=== PATIENT | female | born 1930 | race Caucasian/White ===

== ENCOUNTER 2016-06-30 08:01 | Inpatient (IN) | payer MEDICARE ==
[~2016-06-30] VITALS: Ht 147.3 cm; Wt 75.4 kg
[2016-06-30] VITALS (11 sets, daily range): BP systolic 124–169; BP diastolic 47–82; PULSE 50–60; RESP 12–23; O2SAT 93–99
--- NOTE | 2016-06-30 08:47 | DRSVH ---
PROCEDURE: X-RAY CHEST, TWO VIEWS ([id number]) INDICATIONS: SHORTNESS OF BREATH TECHNIQUE: 2 views of the chest were acquired. COMPARISON: None. FINDINGS: Surgical changes and devices: None. Lungs and pleura: No pleural effusions or pneumothorax. Lungs are clear. Mediastinum: Mediastinal contours are normal. Heart size is normal. Bones and chest wall: No suspicious bony abnormalities. Soft tissues appear unremarkable. IMPRESSION: No acute process. Dictated by: Afshin Trammell M.D. on 06/30/2016 at 8:45 Approved by: Afshin Trammell M.D. on 06/30/2016 at 8:45
--- NOTE | 2016-06-30 09:05 | ED.REPORT ---
HPI-General Illness Date of Service Jun 30, 2016 ED Provider: Celestino Collier DO The patient is an 86 year old female who presents to the emergency department complaining of flu-like symptoms that began 1 week ago. She has experienced a headache, weakness, malaise, nausea, decreased appetite, and productive cough. Her grandson states she had a few falls yesterday due to weakness. She denies fever, vomiting, diarrhea, abdominal pain, chest pain, dysuria, urinary urgency or hematuria. She denies history of coronary artery disease or congestive heart failure. Nursing Notes Stated Complaint: FLU Chief Complaint: FLU/Cold Symptoms Nursing Notes Reviewed: Yes Allergies: Coded Allergies: No Known Allergies (Unverified , 06/30/16) General Time Seen by MD: 09:03 Chief Complaint Flu-like illness Hx Obtained From: Patient Arrived By: Walk-in Sudden in Onset?: Yes Onset Occurred: More than a week ago... Symptom Duration: Since onset Quality: Painful Severity: Current: Mild Severity: Maximum: Moderate Recent Healthcare: No recent hospitalization Similar Sx Previous: No Past Medical History Past Medical History Hypertension High cholesterol Past Surgical History Appendectomy Tonsillectomy Family History Noncontributory Smoking History Unknown if Ever Smoker Social History Alcohol Use: "Social" Drug Use: Denies drug use Other Social History: Good social support, Local resident Ambulatory Status Independent Review of Systems +decreased appetite Full Review of Systems Constitutional: Reports: Malaise, Weakness - generalized, Denies: Fever Respiratory: Reports: Prod cough, white GI: Reports: Nausea, Denies: Abdominal pain, Constipation, Diarrhea, Vomiting Female: Denies: Dysuria, Hematuria, Urinary frequency, Urinary urgency, Urination decreased, Urination increased Musculoskeletal: Reports: Myalgia Neurologic: Reports: Headache Complete sys rev & neg: except as marked. Physical Exam Vital Signs Vital Signs Date Time Temp Pulse Resp B/P Pulse Ox O2 Delivery O2 Flow Rate FiO2 06/30/16 11:38 56 20 169/50 96 Nasal Cannula 06/30/16 10:18 57 16 97 Room Air 06/30/16 08:03 36.3 50 18 159/74 97 Room Air Initial VS: Reviewed Head / Eyes: Atraumatic, Normocephalic, PERRL ENT: Mucous membranes moist, Conjunctiva normal, No scleral icterus Cardiovascular: Regular rate & rhythm, Heart sounds normal, Intact distal pulses Abdomen / GI: Soft, Non-tender, No guarding, No rebound, No distention Lymphatic: No lymphadenopathy Extremities: Vascular intact, Neuro intact, No swelling, No tenderness Skin: Warm, Dry, No cyanosis Neurologic: Alert, Oriented, Nonfocal Psychiatric: Mood/affect normal, Behavior normal, Normal thought content General/Constitutional: Awake, Alert, Cooperative Neck: Atraumatic, Supple, No meningismus, Full range of motion, No swelling, Non-tender, No midline vertebral tend, No JVD Respiratory / Chest: Breath sounds = bilat, No respiratory distress, No rales, No rhonchi Wheezing / Retractions: Positive: Wheezing expiratory Interpretation & Diagnostics Lab Results Interpretation Result Diagram: 06/30/16 0900 06/30/16 1020 Test 06/30/16 09:00 06/30/16 10:20 06/30/16 11:13 White Blood Count 14.0th/mm3 (3.8-10.1) Red Blood Count 4.79mil/mm3 (3.90-5.20) Hemoglobin 13.9g/dL (12.0-15.6) Hematocrit 36.8% (35.0-46.0) Mean Corpuscular Volume 76.8fL (81-100) Mean Corpuscular Hemoglobin 29.0pg (27.0-35.0) Mean Corpuscular Hemoglobin Concent 37.8% (32.0-37.0) Red Cell Distribution Width 11.8% (12.3-15.4) Platelet Count 310bil/L (150-400) Neutrophils (%) (Auto) 77.5% (40-74) Lymphocytes (%) (Auto) 6.9% (14-46) Monocytes (%) (Auto) 14.6% (4-12) Eosinophils (%) (Auto) 0.4% (0-5) Basophils (%) (Auto) 0.1% (0-3) Total Bilirubin 1.2mg/dL (0.0-1.2) Aspartate Amino Transf (AST/SGOT) 82U/L (0-50) Alanine Aminotransferase (ALT/SGPT) 34U/L (0-32) Alkaline Phosphatase 79U/L (25-165) Troponin T 0.057ug/L (0.0-0.011) Pro-B-Type Natriuretic Peptide 3815pg/mL (0-738) Total Protein 6.9g/dL (6.4-8.4) Albumin 3.8g/dL (3.4-5.0) Sodium Level 106mEq/L (134-144) Potassium Level 3.0mEq/L (3.5-5.2) Chloride Level 66mEq/L (97-108) Carbon Dioxide Level 27mmol/L (18-29) Blood Urea Nitrogen 13mg/dL (8-27) Creatinine 0.57mg/dL (0.57-1.00) Estimat Glomerular Filtration Rate 145mL/min (>59) Glucose Level 99mg/dL (60-99) Lactic Acid Level 0.9mmol/L (0.4-2.0) Calcium Level 8.1mg/dL (8.5-10.1) Total Creatine Kinase 1263U/L (21-215) Creatine Kinase MB 28.9ng/mL (0.0-5.3) Creatine Kinase MB % 2.3% (0.0-5.0) ECG Interpretation ECG Interpretation: Sinus bradycardia Nonspecific ST changes No acute ischemic changes QTc of 517 Time: 09:05 Interpreted by: ED physician X-Ray Chest Interpretation Chest Xray Interpretation: IMPRESSION: No acute process. Dictated by: Afshin Trammell M.D. on 06/30/2016 at 8:45 Interpretation / Wet Read by: Interpret - Radiologist CT Head Interpretation IMPRESSION: 1. No acute intracranial process. 2. Moderate atrophy and chronic microvascular ischemic changes. Dictated by: Kim Elizabeth M.D. on 06/30/2016 at 11:41 Study: Head CT no contrast Interpretation / Wet Read by: Interpret - Radiologist CT Chest Interpretation IMPRESSION: 1. Scattered nodular groundglass like opacities as above. Their overall nonspecific and no priors are available for comparison. Findings are suspicious for infection or inflammation. Recommend interval imaging followup to document resolution and exclude presence of underlying mass lesion. 2. Mild appearance of esophageal thickening as described above. While this could be related to incomplete distention peristalsis, interval followup is recommended if concern for inflammation or mass lesion. 3. Cholelithiasis. 4. No pulmonary embolism. Dictated by: Kim Elizabeth M.D. on 06/30/2016 at 11:50 Study type: CT pulm angiogram Interpretation / Wet Read by: Interpret - Radiologist Re-Eval/Medical Decision Med Decision/Clinical Course Critical electrolyte abnormalities including a sodium of 105 potassium 2.7, associated elevated CK and troponin concerning for non-STEMI. Patient will be heparinized. Patient is receiving IV potassium. As well as IV normal saline order to improve electrolytes. Patient will be admitted. Source of Hx: Old records, Family Time of Eval: 10:16 Re-Evaluation/Progress Note: Rechecked the patient. Discussed lab results, diagnosis, and plan for workup and admission. All questions were addressed. Consultation : Referral / Consult Name: Alan Pedro MD Consulted With: Hospitalist Call Returned at: 10:52 Speeder Tender: Will see patient, Agrees with eval, Agrees with plan, Accepts admit Counseled Regarding: Diagnosis, Lab results, Need for admission Discharge & Departure Primary Impression: Hyponatremia Additional Impressions: Hypokalemia Elevated troponin CHF (congestive heart failure) Congestive heart failure type: unspecified congestive heart failure type Congestive heart failure chronicity: unspecified congestive heart failure chronicity Qualified Code: I50.9 - Heart failure, unspecified Disposition: ADMITTED TO HOSPITAL Discharge Condition All VS Reviewed: Yes Condition: Stable Referrals: Indio Juarez (PCP) Crit Care Except Billable Proc Time Spent: 30-74 minutes Services Performed: Patient management by me, Time spent at bedside, Reviewing test results Critical Care Notes: See MDM Scribe Attestation Portions of this note were transcribed by Johanna Gaming. I, Dr. Collier personally performed the history, physical exam and medical decision-making; I reviewed and confirmed the accuracy of the information in the transcribed note. Signed by: Anand Sunshine, 06/30/2016 and 1200. copies to: Indio Juarez Timothy S DO Jun 30, 2016 09:05 Johanna Gaming Jun 30, 2016 09:26
[2016-06-30 09:18] LABS: BASOPHILS % (AUTO) 0.1 % (0-3); Mean Corpuscular Volume 76.8 fL (81-100); NEUTROPHILS % (AUTO) 77.5 % (40-74)
[2016-06-30 09:28] LABS: EOSINOPHILS % (AUTO) 0.4 % (0-5); MONOCYTES % (AUTO) 14.6 % (4-12); Platelet Count 310 bil/L (150-400)
[2016-06-30] MEDS ORDERED: 0.9% Sodium Chloride 1,000 ML IV ONE (09:30)
[2016-06-30] MEDS ORDERED: Albuterol-Ipratropium 3 mL Inhalation Solution NEB ONE (09:30)
[2016-06-30 10:00] LABS: TROPONIN T 0.057 ug/L (0.0-0.011)
[2016-06-30] MEDS ORDERED: 0.9% Sodium Chloride 1,000 ML IV SCH ×2 (10:05→11:41)
[2016-06-30] MEDS ORDERED: Potassium Chloride 20 mEq SR Tablet PO ONE (10:10)
[2016-06-30] MEDS ORDERED: KCl 40 mEq/D5W 500 mL 40 MEQ in IV Premix 1 EACH IV ONE (10:10)
--- NOTE | 2016-06-30 11:43 | DRSVH ---
PROCEDURE: CT BRAIN WITHOUT CONTRAST ([id number]) INDICATIONS: recent falls TECHNIQUE: Noncontrast 4.5 mm thick angled axial sections acquired from the foramen magnum to the vertex, with c oronal reformats. COMPARISON: None. FINDINGS: Image quality: Excellent. CSF spaces: Basal cisterns are patent. No extra-axial fluid collections. The ventricles are symmet nelson in size and shape. Brain: No intracranial bleeds or masses. There is cerebral volume loss for age, with resultant vent ricular and sulcal prominence. There are periventricular and deep white matter chronic small vessel ischemic changes. There is intracranial internal carotid artery atherosclerosis. Skull and face: Calvarium and visualized facial bones appear intact, without suspicious lesions. Sinuses: Visualized sinuses and mastoids are clear. IMPRESSION: 1. No acute intracranial process. 2. Moderate atrophy and chronic microvascular ischemic changes. Dictated by: Kim Elizabeth M.D. on 06/30/2016 at 11:41 Approved by: Kim Elizabeth M.D. on 06/30/2016 at 11:41
--- NOTE | 2016-06-30 11:52 | DRSVH ---
PROCEDURE: CT ANGIO CHEST PULMONARY EMBOLISM ([id number]) INDICATIONS: dyspnea, TECHNIQUE: After the administration of intravenous contrast, 2 mm thick sections acquired from the pulmonary api conchita to the posterior costophrenic angles. 3-dimensional maximum intensity projection (MIP) coronal a nd sagittal reformats were then acquired through the thorax. For radiation dose reduction, the follo wing was used: automated exposure control, adjustment of mA and/or kV according to patient size. COMPARISON: None. FINDINGS: Image quality: Excellent. Pulmonary arteries: Pulmonary arteries are normal in size, and demonstrate no intraluminal filling d efects to suggest central pulmonary embolism. Lungs and pleura: There are scattered nodular and groundglass like opacities bilaterally. The large st measures 13 mm. No pleural effusions or pneumothorax. Central and peripheral airways are patent. Mediastinum: Heart size is normal, without pericardial effusion. No mediastinal or hilar adenopathy . Thoracic aorta is normal in caliber and enhancement. Esophagus demonstrates mild appearance of di ffuse thickening, slightly more prominent in the midportion. Small hiatal hernia is present. Bones and chest wall: No suspicious bony lesions. Ribs and thoracic spine appear intact throughout. Thyroid gland is unremarkable. No axillary or supraclavicular adenopathy. Abdomen: Gallbladder demonstrates luminal calcification without cortical thickening. Visualized uppe r abdominal solid organs appear normal in the early arterial phase of enhancement. IMPRESSION: 1. Scattered nodular groundglass like opacities as above. Their overall nonspecific and no priors are available for comparison. Findings are suspicious for infection or inflammation. Recommend interval imaging followup to document resolution and exclude presence of underlying mass lesion. 2. Mild appearance of esophageal thickening as described above. While this could be related to incomp lete distention peristalsis, interval followup is recommended if concern for inflammation or mass les ion. 3. Cholelithiasis. 4. No pulmonary embolism. Dictated by: Kim Elizabeth M.D. on 06/30/2016 at 11:50 Approved by: Kim Elizabeth M.D. on 06/30/2016 at 11:50
[2016-06-30] MEDS ORDERED: Heparin 5,000 Unit/mL Inj IVPUSH ONE (12:00)
[2016-06-30] MEDS ORDERED: Heparin 25K Unit/500mL 0.45 NS 25,000 UNIT in IV Premix 1 EACH IV ONE (12:00)
[2016-06-30] MEDS ORDERED: Ondansetron 2 mg/mL 2 mL Inj IVPUSH PRN (12:15)
[2016-06-30] MEDS ORDERED: SODIUM CHLORIDE 0.9% IV SCH (12:25)
[2016-06-30] MEDS ORDERED: KCL IV SCH (12:25)
[2016-06-30] MEDS ORDERED: D5W 40 MEQ IV SCH (12:25)
[2016-06-30] MEDS: Potassium Chloride Inj 40 MEQ in 0.9% Sodium Chloride 500 ML IV SCH ×2 (13:11→16:36)
[2016-06-30] MEDS ORDERED: Polyethylene Glycol (PEG) 17 Gm Powder PO PRN (13:50)
[2016-06-30] MEDS ORDERED: Senna-Docusate 8.6-50 mg Tablet PO PRN (13:50)
[2016-06-30 14:35] LABS: OSMOLALITY, URINE 328 mOs/kH2O (250-1200)
[2016-06-30 14:55] LABS: APPEARANCE,URINE HAZY (CLEAR,HAZY); COLOR,URINE STRAW (YELLOW); PH,URINE 7.5 (5.0-8.0)
[2016-06-30 14:56] LABS: OCCULT BLOOD,URINE SMALL (NEGATIVE); UROBILINOGEN,URINE NORMAL (NORMAL)
[2016-06-30] MEDS ORDERED: 3% Sodium Chloride Inj 500 ML IV STA (15:23)
[2016-06-30] MEDS ORDERED: Heparin 5,000 Unit/mL Inj SUBQ SCH (16:30)
[2016-06-30] MEDS ORDERED: Heparin 25K Unit/500mL 0.45 NS 25,000 UNIT in IV Premix 1 EACH IV SCH (16:35)
[2016-06-30] MEDS ORDERED: Heparin 5,000 Unit/mL Inj IVPUSH PRN (16:35)
--- NOTE | 2016-06-30 17:21 | DRSVH ---
[facility] [address] [place] [address] Echocardiogram Report Name: CHRISTINE EDGAR JStudy Date : 06/30/2016 Height: 58 in Hospital Exam Location: [facility] Weight: 160 lb Gender: Female BSA: 1.7 m2 : 1930 Age: 86 yrs BP: 152/47 mmHg Reason For Study: ELEVATED TROPONIN Ordering Physician: Performed By: Montez Brock Interpretation Summary 1. Normal left ventricular size, wall thickness and systolic function with an estimated EF of 60-65% 2. Normal right ventricular size and systolic function. The estimated RVSP is 35 mm Hg 3. No evidence for significant valvular pathology. There is no old study for comparison Procedure: A two-dimensional transthoracic echocardiogram with color flow and Doppler was performed. The study quality was technically adequate. There is no prior echocardiogram noted for this patient. The patient was in normal sinus rhythm during the exam. The patient had occasional PACs during the exam. Left Ventricle: The left ventricle is normal in size. There is normal left ventricular wall thickness. A false chord is noted (normal variant). The ejection fraction is estimated to be 60-65%. No obvious wall motion abnormalities. Right Ventricle: The right ventricle is normal in size and function. Atria: The left atrium is moderately dilated. Right atrial size is normal. No color doppler evidence for an ASD. Mitral Valve: The mitral valve is normal in structure and function. There is trace mitral regurgitation. Aortic Valve: The aortic valve is trileaflet. The aortic valve opens well. There is no aortic valve stenosis. There is mild aortic regurgitation. Tricuspid Valve: The tricuspid valve is normal in structure and function. There is mild tricuspid regurgitation. The right ventricular systolic pressure is estimated at 35 mmHg assuming a right atrial pressure of 3 mm Hg. Pulmonic Valve: The pulmonic valve is normal in structure and function. There is trace pulmonic regurgitation. Great Vessels: The aortic root is normal size. The ascending aorta is mildly enlarged. The ascending aorta is measured at 3.8 cm. The pulmonary artery is normal size. The IVC is of normal diameter and collapses greater than 50% with a sniff. This suggests a low right atrial pressure of 3 mm Hg. Pericardium/ Pleura There is no pericardial effusion. There is no pleural effusion. MMode/2D Measurements & Calculations LVIDd: 4.8 cm LA dimension: 3.8 cm RA long axis LVOT diam LVIDs: 3.2 cm FS: 33.4 % LA A2 area: 26.4 cm RA area AoV Opening EPSS: 0.88 cm LA A4 area: 25.0 cm IVSd: 0.88 cm LA length (vol): 6.4 cm: 18.6 cm Ao root diam LVPWd: 0.86 cm LA vol: 87.7 ml RA vol LA vol index : 57.6 ml Aortic Jxn RA : 34.8 mm2 asc Aorta IVC diam: 1.7 cm Diam: 3.8 cm LV flor. diameter/BSA LV sys. diameter/BSA (cm/m^2): 2.9 (cm/m^2): 1.9 Doppler Measurements & Calculations Ao V2 max MV E max pelon MV E/A: 1.1 TR max pelon : 174.7 cm/sec : 74.1 cm/sec Med Peak E' Pelon : 282.4 cm/sec Ao max P.2 mmHg MV A max pelon TR max PG Ao mean P.3 mmHg : 68.0 cm/sec E/E' med: 19.4 : 31.9 mmHg LVOT Max Pelon Lat Peak E' Pelon PA V2 max : 99.5 cm/sec : 95.8 cm/sec E/E' lat: 9.3 PA mean PG ABBY(I,D): 1.6 cm Pulm A Revs Dur sev ratio: 0.51 PA Accel Time AI P1/2t: 797.0 msec MV A dur: 0.15 sec : 0.08 sec AI dec slope : 147.9 cm/s2c MV dec time: 0.46 sec Ao V2 mean LV V1 max PG PA V2 mean : 119.9 cm/sec : 64.8 cm/sec Ao V2 VTI LV V1 VTI: 24.1 cm PA pr(Accel) : 36.6 mmHg ABBY(V,D): 1.8 cm2 ABBY indexed to BSA E/e' average Pulm A Revs Dur - MV (cm^2/m^2): 0.96 A Dur: -0.04 msec Reading Physician:05:20 PM
--- NOTE | 2016-06-30 17:22 | PCM.HPMED ---
Subjective Date of Service Jun 30, 2016 Primary Provider: Admitting Physician: Alan Pedro MD Primary Care Physician: Ross Lowry Attending Physician: Alan Pedro MD Admit Status: Admit to [facility] Team, Critical Care Chief Complaint: Flu like symptoms including weakness, dizziness, cough History of Present Illness: Ashley Alvarez is an 86-year-old female with past medical history significant for hypertension and hyperlipidemia who presents to the ED with 1 week of flulike symptoms with decreased oral intake. Patient states flulike symptoms including weakness, malaise, nausea, headache, dizzy, and productive cough. She notes that on Wednesday she went to see her primary care provider, Dr. Galvez, and was told she had the flu. She was prescribed an inhaler but never picked it up from the pharmacy. She notes that appetite has been poor and she has had 2-3 glasses of water at most per day. Over the last day or 2 she has had numerous falls due to feeling off balanced. No prior falls. She ambulates with the cane at baseline. She denies any fever, chills, diarrhea, abdominal pain, chest pain, shortness of breath, diaphoresis, or palpitations. She does note numerous sick contacts that have had colds but no influenza to her knowledge. She denies any history of heart or lung disease. She has never had an echocardiogram or any cardiac workup. She lives alone and completes ADLs with ease. She has good family and social support. On presentation to the ED patient's vitals were temperature 36.3, pulse 50, respiratory rate 18, blood pressure 159/74, pulse oximetry 97% on room air. Initial labs were significant for a sodium of 105, potassium 2.7, and troponin 0.057. Chest x-ray and CT of the head were unremarkable. Patient was started on normal saline and potassium replacement. Review of Systems: Comprehensive review of systems was conducted with the patient and found to be negative except as noted above in HPI. Allergies Coded Allergies: No Known Allergies (Unverified , 06/30/16) Home Medications Atenolol 50 mg daily Hydrochlorothiazide 25 mg daily Simvastatin 40 mg daily PMH Hypertension Hyperlipidemia Surgical History Appendectomy Tonsillectomy Right ankle reconstruction Family History Father at age 62 secondary to [place] Mother at age 53 with history of hypertension and stroke Social History Hx Alcohol Use: Yes (2 a day/ [place] ) Hx Substance Use: No Hx Tobacco Use: Yes Smoking Status: Former Smoker (30 pack year history quit 40 years ago) Years of Smokin Living Arrangement: Alone Exam Vital Signs Vital Sign - Last Date Time Temp Pulse Resp B/P Pulse Ox O2 Delivery O2 Flow Rate FiO2 06/30/16 14:38 36.8 55 23 152/47 99 Nasal Cannula 2 Exam General: No acute distress, well-developed, well-nourished, appropriately interactive HEENT: Normocephalic, atraumatic. External ears without defect. Pupils equal, round, and reactive to light and accommodation. Anicteric sclerae, moist conjunctivae, and no lid lag. Oropharynx free of erythema and cobble stoning with dry mucosa. Neck: Supple with full range of motion. No jugular venous distension. No bruits. No lymphadenopathy or thyromegaly. Cardiovascular: Regular rate and rhythm with no murmurs, rubs, or gallops appreciated Pulmonary: Wheezes bilaterally. Normal respiratory effort with no use of accessory muscles. Abdomen: Bowel tones present. Soft, nontender, nondistended. No hepatosplenomegaly or masses appreciated. Extremities: Trace pretibial edema. No clubbing, cyanosis, or lymphadenopathy appreciated. Skin: Decreased skin turgor, normal temperature; no rash, ulcers, or subcutaneous nodules appreciated. Neurological: Cranial nerves grossly intact. Normal muscle strength, tone, and bulk. Reflexes, coordination, and sensory function within normal limits. No known gait impairment. Psychiatric: Normal mood and affect. Alert and oriented to person, place, and time. Lab and Diagnostics Result Diagram: 06/30/16 0900 06/30/16 1020 X-Rays, CTs and MRIs CT ANGIO CHEST PULMONARY EMBOLISM IMPRESSION: 1. Scattered nodular groundglass like opacities as above. Their overall nonspecific and no priors are available for comparison. Findings are suspicious for infection or inflammation. Recommend interval imaging followup to document resolution and exclude presence of underlying mass lesion. 2. Mild appearance of esophageal thickening as described above. While this could be related to incomplete distention peristalsis, interval followup is recommended if concern for inflammation or mass lesion. 3. Cholelithiasis. 4. No pulmonary embolism. Dictated by: Kim Elizabeth M.D. on 06/30/2016 at 11:50 Approved by: Kim Elizabeth M.D. on 06/30/2016 at 11:50 CT BRAIN WITHOUT CONTRAST IMPRESSION: 1. No acute intracranial process. 2. Moderate atrophy and chronic microvascular ischemic changes. Dictated by: Kim Elizabeth M.D. on 06/30/2016 at 11:41 Approved by: Kim Elizabeth M.D. on 06/30/2016 at 11:41 X-RAY CHEST, TWO VIEWS IMPRESSION: No acute process. Dictated by: Afshin Trammell M.D. on 06/30/2016 at 8:45 Approved by: Afshin Trammell M.D. on 06/30/2016 at 8:45 Assessment & Plan Ashley Alvarez is an 86-year-old female with past medical history significant for hypertension and hyperlipidemia who presents with 1 week of flulike symptoms with decreased oral intake. Admitted for electrolyte disturbances and elevated troponin. 1. Hypovolemic hyponatremia, present on admission, active. - Likely secondary to dehydration and poor oral intake. - Sodium on admission 105. - Initially started on normal saline at 120 mL per hour. Per nephrology switched to 3% normal saline. Nephrology managing fluids. - Close monitoring of sodium levels with goal of no greater than 10 mEq increase in 24 hours.. - Nephrology consulted. Appreciate time and expertise. 2. Hypokalemia, present on admission, active. - Potassium on admission 2.7. - No EKG changes. - Potassium chloride 40 mEq in NS - Repeat potassium level pending. - We will continue to monitor. 3. Upper respiratory tract infection versus atypical pneumonia, present on admission, active. - Patient with wheezing and productive cough ongoing for last 2-3 weeks. No history of lung disease. Former 30 pack year history quit 40+ years ago. - Viral respiratory panel, urine Legionella, strep pneumonia, and sputum culture pending. - Influenza screen negative. - Chest x-ray 06/30 showed no acute cardio pulmonary processes. - DuoNeb every 6 hours when necessary. - Leukocytosis of 14.0. - Holding antibiotic therapy until labs return as patient is afebrile and in no respiratory distress. 4. Elevated troponin of unknown significance, present on admission, active. - Initial troponin 0.057. Patient completely asymptomatic. - EKG revealed no ischemic changes. - Heparin drip initiated in ED will continue. - Serial troponins pending. - Echo pending. No prior echo. - Aspirin 81 mg daily. - We will continue home regimen of simvastatin 40 mg daily. - Monitor on telemetry. 5. Hypertension, present on admission, chronic. - Continue home medications as follows: Atenolol 50 mg daily - Hold Hydrochlorothiazide 25 mg daily 6. Hyperlipidemia, present on admission, chronic. - Atorvastatin 20 mg daily. Patient is admitted under inpatient status with expected length of stay greater than 2 midnights due to severity of presenting symptoms, risk of adverse event, and complexity of treatment plan. Pain Evaluation: Adequate Pain Control GI Prophylaxis: Not indicated VTE Prophylaxis: Other (heparin gtt) VTE Mechanical Devices: Intermittant Pneumatic CD Resuscitation Status: CPR: Attempt Resuscitation Attending Statement The patient was seen and examined together with Dr. Blanc on 06/30/2016 and I agree with the history, exam and plan as outlined in the note above. . VALERIE BLANC DO Jun 30, 2016 17:22 Alan Pedro MD Jul 01, 2016 07:46
[2016-06-30] MEDS ORDERED: Magnesium Sulf 2 Gm/50mL Water 2 GM in IV Premix 1 EACH IV ONE (17:50)
[2016-06-30 18:45] LABS: TROPONIN T 0.025 ug/L (0.0-0.011)
--- NOTE | 2016-06-30 19:52 | NUR ---
Admit: Patient arrived via stretcher to CCU room 2019 @ 1600. Pt A&O X3. Denies CP. on RA. VSS. IV X2. Heparin gtt at 1000u/kg/hr. NS at 150mL/hr and K rider 40meq infusing. 3% NS was started at 1720. Stat K and Na labs were ordered as soon as K rider finished infusing ([id number]) per Dr Belle orders.
[2016-06-30] MEDS ORDERED: Potassium Chloride 20 mEq/15 mL 15mL Oral Soln PO ONE (20:20)
[2016-06-30] MEDS: Sodium-Potassium Phosphorus Packet PO SCH (20:50)
--- NOTE | 2016-06-30 21:51 | CONS ---
[address] [address] CONSULTATION REPORT PATIENT: CHRISTINE EDGAR : 1930 MR#: [id number] ADMIT: 06/30/2016 JOB ID: [id number] DATE OF SERVICE: 06/30/2016 REQUESTING PHYSICIAN: Alan Pedro MD. REASON FOR CONSULTATION: Management of hyponatremia. CHIEF COMPLAINT: Weakness and fall. PRESENT ILLNESS: This is a very pleasant, 86-year-old lady with significant past medical history of hypertension and dyslipidemia, who presented to the emergency department due to weakness and fall. According to the family, patient started having flu-like symptoms, including fatigue, nausea, poor appetite, and productive cough about one week prior to the admission. The patient was seen by her family physician on Wednesday. She had a chest x-ray done and was told that she had the flu infection. Family mentioned that she was prescribed [id number] Flonase. However, she did not pick it up from the pharmacy. She has had a poor appetite. Of note, she had the episode of ground-level fall. Her granddaughter had visited her at home and then they called patient's daughter, who is a nurse. She recommended to bring the patient to the emergency department for further investigation. HOME MEDICATIONS: Patient was taking atenolol, hydrochlorothiazide, and simvastatin. Initial blood work showed a sodium of 105, potassium of 2.7, BUN of 13, creatinine 0.64. The patient received normal saline bolus. Her repeated serum sodium was 106. Of note, her troponin was 0.057. Total CK was 1263, CK-MB was 28.9. She was started on heparin drip in the emergency department. Chest x-ray and CT head were not unremarkable. CT chest, PE protocol, did not show evidence of a pulmonary embolism, but positive for scattered nodular ground glass-like opacities. One of her granddaughters mentioned to me that patient now confused. Normally, patient is very sharp. The patient is not aware of why she needs to be admitted and seems a little bit agitated during my visit. PAST MEDICAL HISTORY: Hypertension, dyslipidemia. PAST SURGICAL HISTORY: Status post appendectomy. Status post tonsillectomy. Right ankle reconstruction. FAMILY HISTORY: Positive for hypertension, heart disease, and stroke in the family. SOCIAL HISTORY: Patient is a former smoker. She drinks two vodkas a day. She denies using any illicit drugs. REVIEW OF SYSTEMS: Fourteen-point review of system was performed. ALLERGIES: NO KNOWN DRUG ALLERGIES. MEDICATIONS: Reviewed. PHYSICAL EXAMINATION: Vitals: Temperature 36.6, pulse 56, respiratory 18, blood pressure 144/79, O2 sat 97% on room air. General appearance: Awake, alert, oriented x3. Confused at times, According to the family. HEENT: No pallor, no jaundice. No JVD. No lymphadenopathy. No thyroid enlargement. Dry mucous membranes. Heart: Regular rhythm. Normal S1, S2. No murmurs, rubs, or gallops. Lungs: Wheezing bilaterally. Fine crackles at the bases. Abdomen: Soft, active bowel sounds. Nontender, nondistended, no hepatosplenomegaly. Extremity: No edema, cyanosis or clubbing of fingers. LABORATORY: WBC 14, hemoglobin 13.9, sodium 106, potassium 3.0, chloride 66, BUN 13, creatinine 0.57. Calcium 8.1, AST 82, ALT 34. Urine pH 7.5, specific gravity 1.010. Urine osmolality 328. Urine creatinine 28. Urine sodium 42. ASSESSMENT: 1. Chronic hyponatremia, assume onset over 48 hours. Of note, the patient was taking hydrochlorothiazide for the hypertension. The patient has been sick over the past week also with poor appetite. Her initial sodium was 105. She received normal saline bolus in the emergency department. The repeat urine sodium remained low at 106. Her blood pressure has been stable throughout. No evidence of hypotension. Of note, her potassium level was low at 3.0. Urine osmolality was 328. Urine creatinine 28. Urine sodium 42. The etiology of hyponatremia is not straightforward. It seems like hydrochlorothiazide takes a major responsibility for hyponatremia. However, certain findings did not support the diuretics induced hyponatremia including normal BUN and creatinine, normal or rather high blood pressure, low uric acid. I am afraid that syndrome of inappropriate antidiuretic hormone secretion will take a major part of her hyponatremia. She had received normal saline. We are not able to correct her sodium. It stays at 106. According to the family, she is also confused with evident history of fall. At this point, I decided to start her on 3% normal saline run at 20 cc/hour and the purpose is to raise her serum sodium quickly to the safe zone. Nonetheless, we would not want to over-correct more than 10 mEq per 24 hours. We will check her serum sodium every 2 hours to prevent over-correction. The etiology of SIADH at this point, can be because of lung disease. She could have viral pneumonitis, atypical pneumonia or bacterial pneumonia. 2. Diuretic-induced hypokalemia. 3. Elevation of troponin. 4. History of hypertension. Thank you for the consultation. We will monitor along with you.
[2016-06-30] MEDS: Albuterol-Ipratropium 3 mL Inhalation Solution NEB PRN (22:31)
[2016-07-01] MEDS ORDERED: 0.9% Sodium Chloride 1,000 ML IV SCH ×2 (02:45→11:00)
[2016-07-01 03:52] VITALS: BP 132/36; PULSE 58; RESP 14; O2SAT 97
[2016-07-01 05:02] LABS: BASOPHILS % (AUTO) 0.1 % (0-3); EOSINOPHILS % (AUTO) 0.3 % (0-5); MONOCYTES % (AUTO) 10.8 % (4-12); Mean Corpuscular Volume 79.6 fL (81-100); NEUTROPHILS % (AUTO) 83.7 % (40-74); Platelet Count 272 bil/L (150-400)
[2016-07-01 05:40] LABS: Phosphorus 1.7 mg/dL (2.5-4.9); TROPONIN T 0.01 ug/L (0.0-0.011)
[2016-07-01] MEDS ORDERED: 3% Sodium Chloride Inj 500 ML IV SCH ×2 (06:33→15:40)
[2016-07-01] MEDS ORDERED: SODIUM PHOSPHATE IV ONE (07:00)
[2016-07-01] MEDS ORDERED: SODIUM CHLORIDE 0.9% IV ONE (07:00)
[2016-07-01] MEDS ORDERED: Potassium Phos (mMol) Inj 30 MMOL in Dextrose 5% 500 ML IV ONE ×3 (07:00→08:10)
--- NOTE | 2016-07-01 07:24 | NUR ---
Labs / Mobility MD updated on all critical labs on date night caregiver. Orders received to change 3%NS to NS at 60ml/hr, then after next lab orders received to change back to the 3%NS. MD aware of other AM electrolytes. Patient up to BSC once, very weak and had difficulty getting back into bed. Bedpan used at night after that. Orthostatic vitals documented in computer; patient unable to stand long enough for that portion of the vital signs.
[2016-07-01 07:51] VITALS: BP 126/60; PULSE 54; RESP 14; O2SAT 97
[2016-07-01] MEDS ORDERED: 0.9% Sodium Chloride 1,000 ML ONE ×2 (08:05→13:43)
[2016-07-01] MEDS: Ondansetron 2 mg/mL 2 mL Inj IVPUSH PRN ×2 (08:26→13:50)
[2016-07-01] MEDS: Sodium-Potassium Phosphorus Packet PO SCH ×3 (08:29→20:18)
[2016-07-01] MEDS ORDERED: Cefepime Inj 2 GM in IV Premix 1 EACH IV SCH (08:30)
[2016-07-01] MEDS ORDERED: Vancomycin Dose per Pharmacist XX SCH (08:30)
--- NOTE | 2016-07-01 11:09 | PCM.PNMED ---
Subjective Date of Service Jul 01, 2016 Subjective She became hypotensive this morning, 70-90 sBP, MAP ~ 46. Na 118. 3%NaCl d/c'd. tested influenza A H3 positive. worsening leukocytosis. Exam Vital Signs Vital Sign - Last Date Time Temp Pulse Resp B/P Pulse Ox O2 Delivery O2 Flow Rate FiO2 07/01/16 07:51 36.6 54 14 126/60 97 Room Air 06/30/16 14:38 2 Intake and Output 06/30/16 06/30/16 07/01/16 Cumulative From/Thru 15:00 23:00 07:00 06/30/16 08:03 - 07/01/16 05:49 Intake Total 1000 ml 1634 ml 496 ml 3130 ml Output Total 200 ml 200 ml Balance 1000 ml 1634 ml 296 ml 2930 ml Intake Oral 100 ml 100 ml 200 ml IV Total 1000 ml 1534 ml 396 ml 2930 ml Output Urine Total 200 ml 200 ml # Voids 1 2 3 # Bowel Movements 0 1 1 Exam PHYSICAL EXAMINATION: General appearance: Awake, alert, oriented x3. HEENT: No pallor, no jaundice. No JVD. No lymphadenopathy. No thyroid enlargement. Dry mucous membranes. Heart: Regular rhythm. Normal S1, S2. No murmurs, rubs, or gallops. Lungs: Wheezing bilaterally. Fine crackles at the bases. Abdomen: Soft, active bowel sounds. Nontender, nondistended, no hepatosplenomegaly. Extremity: No edema, cyanosis or clubbing of fingers. Lab and Diagnostics Result Diagram: 07/01/16 0500 07/01/16 0820 X-Rays, CTs and MRIs CT ANGIO CHEST PULMONARY EMBOLISM IMPRESSION: 1. Scattered nodular groundglass like opacities as above. Their overall nonspecific and no priors are available for comparison. Findings are suspicious for infection or inflammation. Recommend interval imaging followup to document resolution and exclude presence of underlying mass lesion. 2. Mild appearance of esophageal thickening as described above. While this could be related to incomplete distention peristalsis, interval followup is recommended if concern for inflammation or mass lesion. 3. Cholelithiasis. 4. No pulmonary embolism. Dictated by: Kim Elizabeth M.D. on 06/30/2016 at 11:50 Approved by: Kim Elizabeth M.D. on 06/30/2016 at 11:50 CT BRAIN WITHOUT CONTRAST IMPRESSION: 1. No acute intracranial process. 2. Moderate atrophy and chronic microvascular ischemic changes. Dictated by: Kim Elizabeth M.D. on 06/30/2016 at 11:41 Approved by: Kim Elizabeth M.D. on 06/30/2016 at 11:41 X-RAY CHEST, TWO VIEWS IMPRESSION: No acute process. Dictated by: Afshin Trammell M.D. on 06/30/2016 at 8:45 Approved by: Afshin Trammell M.D. on 06/30/2016 at 8:45 Assessment & Plan ASSESSMENT: 1. Chronic hyponatremia, assumed onset over 48 hours. - not a straightforward case as discussed in my consultation note. 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 - Her current Na 118. She has become septic, worsening leukocytosis, (+) flu, hypotension. - will hold 3% NaCl, give NS IVF bolus 1L over an hour, repeat Na level at 10 am. - will readjust fluid accordingly. 2. Influenza pneumonia, ? superimposed bacterial infection - ID has been consulted. 3. Hypokalemia, resolved. 4. Hypophosphatemia. 5. Elevation of troponin 6. H/o HTN GI Prophylaxis: Not indicated VTE Prophylaxis: Other (heparin gtt) VTE Mechanical Devices: Intermittant Pneumatic CD Resuscitation Status: CPR: Attempt Resuscitation Josie Larsen MD Jul 01, 2016 11:09
--- NOTE | 2016-07-01 11:30 | CONS ---
[address] [address] CONSULTATION REPORT PATIENT: CHRISTINE EDGAR : 1930 MR#: [id number] ADMIT: 06/30/2016 JOB ID: [id number] DATE OF SERVICE: 07/01/2016 INFECTIOUS DISEASE CONSULT: I thank Dr. Mckeon for this timely consult. REASON FOR CONSULTATION: Possible superimposed bacterial pneumonia on influenza in a patient with severe hyponatremia. HISTORY OF PRESENT ILLNESS: The patient is a relatively healthy and vibrant 86-year-old woman who was in her usual state of health until a couple of weeks ago when she started to develop some progressive lethargy, weakness and occasional falls. Usually, she gets around quite readily with a cane and so this was a real change in her overall condition. She then about a week ago developed what she described as a flu-like illness with malaise, headache, nonproductive cough and worsening weakness. This was not accompanied, however, by any fevers or chills, nor was there any sore throat. She then became just more "dizzy" and confused eventually, which led her family to bring her for evaluation. It was thought at that point that she probably had the "flu" and that was the working diagnosis until she got to the emergency department. At that time, she was found to have some very abnormal labs including a sodium at 105, a potassium of 2.7 and a test positive for influenza. She was then admitted to the ICU, where overnight her electrolytes have been very carefully managed. This morning the patient's sodium has been partially restored to normal, and she is feeling better. She is able to give us additional history and again denies any fevers or chills. She has had the nonproductive cough, which is unusual for her, progressive weakness and perhaps some minimal shortness of breath but no sore throat and no significant fever, chills, or sweats. She has really had nothing in the way of GI symptoms either. PAST MEDICAL HISTORY: Notable for: 1. Hypertension. 2. Hyperlipidemia. 3. Status post appendectomy and tonsillectomy. FAMILY HISTORY: Negative for TB. Positive for atherosclerotic disease and hypertension. SOCIAL HISTORY: The patient drinks a couple of glasses a day or a couple of shots a day of hard liquor. 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 She currently lives alone in the [facility]. REVIEW OF SYSTEMS: The patient does note she has some headache and she is clearly aware that she was confused but has now returned to her normal thinking. No visual complaints. No sore throat at all. No trouble swallowing. In fact, while we are discussing these things with her in the ICU, she is eating breakfast without difficulty. The patient does report the nonproductive cough and some increased shortness of breath over the past few days. No nausea, vomiting, or diarrhea. No dysuria. No swelling of the joints. No skin rash, and no focal neurologic complaints but just feeling weak diffusely. PHYSICAL EXAMINATION: Reveals an afebrile woman. Temperature 36.6, pulse in the 50s, respiratory rate 14. When she came in, her blood pressure was 159/74, and her pressures were fine throughout the day yesterday as she moved from the ED due to the ICU. During the night her blood pressures were reasonable, too, but this morning her blood pressures dropped a bit especially with respect to the diastolic pressure to a mean arterial pressure of approximately 45. Following a fluid bolus though, her mean arterial pressures have now rebounded into the 60s, and she is not receiving any active or vasopressor agents. Mental status this morning is clear, and the patient is able to provide a vivid history. Examination of the head: No trauma. No sinus tenderness. Eyes without conjunctivitis. Oral cavity negative. Neck without adenopathy. The lungs with a few scattered rales bilaterally but not impressive. Cardiac tones: Regular rate and rhythm this morning, about 60, with no significant murmur. Abdomen is soft and nontender. The patient does not have a Tiwari catheter. Extremities without edema. No evidence for muscle tenderness or synovitis. Neurologically, she is intact. LABORATORIES: Include white count 17,000, platelet count 272,000. Creatinine 0.56, sodium was 105 and it has been slowly rising, now 118. AST is 60, ALT is 27 with a normal alk phos, albumin 2.9. Procalcitonin less than 0.1 yesterday and today. Urinalysis without white cells. Urine legionella and pneumococcal antigens negative. Blood cultures were just done. The influenza screen was negative but the PCR positive for H3. Sputum, a few polys and some mixed sruthi, no interest. MRSA screen is 12 hours old and pending. IMAGING: CT angiogram done yesterday morning shows scattered ground glass opacities, as well as some esophageal thickening. No PE was seen. On the chest x-ray done yesterday in the ED, there is basically no infiltrate. IMPRESSION: This patient clearly has influenza A, which is superimposed on what sounds like was developing hyponatremia of a couple of weeks' duration. Influenza itself can produce hyponatremia according to a scattering of case reports through the mechanism of triggering syndrome of inappropriate antidiuretic hormone. It is also possible the patient has syndrome of inappropriate antidiuretic hormone from some other cause, and I think that may be more likely given the rarity of influenza-induced syndrome of inappropriate antidiuretic hormone but this is not completely beyond possibility. The patient's influenza is currently under treatment with oseltamivir and this 5-day course has already been started. The patient did have a period of hypotension this morning but it seems unlikely to me looking at the patient this morning that this is related to a serious bacterial superinfection. The patient is sitting up watching TV, conversing in full sentences and enjoying her breakfast. She has no fever, no tachycardia and no tachypnea. Additionally, her lungs sound fairly clear, and her procalcitonin is less than 0.1 on two separate measurements. All of this strongly argues against a bacterial pulmonary superinfection occurring in the setting of influenza A. Likewise, I see little to suggest that she could be bacteremic or septic at this juncture. RECOMMENDATIONS: 1. I would continue with oseltamivir. 2. I would not give the patient vancomycin, as I think a raging MRSA pneumonia would be shocking in this clinical setting. 3. Whether or not to give the patient cefepime overnight is unclear but if we want to continue with a single broad-spectrum antibiotic overnight and just await negative blood cultures and further observation of her clinical course, I think that is not unreasonable. 4. Infectious Disease will continue to follow this complex patient with you in the ICU.
--- NOTE | 2016-07-01 11:55 | NUR ---
NUTRITION ASSESSMENT Assess: 86 yo F w/ hyponatremia, and poss pneumonia. Prior to admission pt was experiencing flu-like symptoms and had a poor appetite. Pt w/ possible SIADH. Pt states that she has not eaten much for the past week and her appetite continues to be decreased. Pt states that she has not noticed any unintentional wt loss. Pt wondering about nutrition support and receiving calories via IV. PMHx: HTN, HLD LABS: Reviewed. Na 120, Cl 81, Cr 0.56, Ca 7.5, Phos 1.7, AST 60, Albumin 2.9 MEDICATIONS: Reviewed. DIET: Heart Healthy/Consistent Carb, No PO recorded DIET Hx/INTAKE MUSEUM ARCHIVIST: Decreased NUTRITION FOCUSED PHYSICAL ASSESSMENT: GI symptoms/stool: BM x1 raden: 22 Skin integrity: No issues noted Overall Appearance: Overweight elderly woman resting in bed - no signs of wasting ANTHROPOMETRICS: Current Wt: 75.7 kg BMI: 34.9 kg/u1Uskmo Wt: 76.5 kg IBW: 43.6 kgRecent wt changes: None noted ESTIMATED NEEDS: Calories: 1358-8925 kcal/d (20-25 kcal/kg/d) Protein: 50-60 g/kg/d (1.2-1.5 g/kg/d IBW) Fluids: ~1550 ml/g NUTRITION DIAGNOSIS: 1) Inadequate oral intake related to acute illness as evidenced by reported decreased appetite/intake. INTERVENTION: 1) Will add Gelatein Plus and yogurt TID 2) Discussed importance of adequate protein/calorie intake 3) Discussed options and implications of nutrition support. Informed pt that our first priority is to have pt eating by mouth and that the next option would be TF via NG/DobHoff before TPN. MONITOR/EVALUATE: PO intake, Na, Wt, Nutrition status, POC. Will follow per moderate nutrition risk guidelines
[2016-07-01 12:35] VITALS: BP 109/46; PULSE 68; RESP 16; O2SAT 99
[2016-07-01] MEDS: 0.9% Sodium Chloride 1,000 ML IV SCH ×2 (13:50→23:50)
--- NOTE | 2016-07-01 14:54 | PCM.PNMED ---
Subjective Date of Service Jul 01, 2016 Subjective Ashley Alvarez is an 86-year-old female with past medical history significant for hypertension and hyperlipidemia who presents with 1 week of flulike symptoms with decreased oral intake. Admitted for electrolyte disturbances and elevated troponin. Hospital day 1. Overnight: No acute events. Today: Patient's MAP dropped into the 40s this morning she responded appropriately to 1 L bolus of normal saline. Throughout this episode patient remained alert and oriented 3 but does endorse some nausea and overall malaise. She denies any shortness of breath, chest pain, palpitations, or headache. Exam Vital Signs Vital Sign - Last Date Time Temp Pulse Resp B/P Pulse Ox O2 Delivery O2 Flow Rate FiO2 07/01/16 03:52 37.1 58 14 132/36 97 Room Air 06/30/16 14:38 2 Intake and Output 06/30/16 06/30/16 07/01/16 Cumulative From/Thru 15:00 23:00 07:00 06/30/16 08:03 - 07/01/16 05:49 Intake Total 1000 ml 1634 ml 496 ml 3130 ml Output Total 200 ml 200 ml Balance 1000 ml 1634 ml 296 ml 2930 ml Intake Oral 100 ml 100 ml 200 ml IV Total 1000 ml 1534 ml 396 ml 2930 ml Output Urine Total 200 ml 200 ml # Voids 1 2 3 # Bowel Movements 0 1 1 Exam General: Lethargic but no acute distress. Well-developed, well-nourished, appropriately interactive HEENT: Normocephalic, atraumatic. External ears without defect. Pupils equal, round, and reactive to light and accommodation. Oral mucosa dry but improved. Neck: Supple with full range of motion. No jugular venous distension. No bruits. No lymphadenopathy or thyromegaly. Cardiovascular: Regular rate and rhythm with no murmurs, rubs, or gallops appreciated Pulmonary: Wheezes bilaterally. Normal respiratory effort with no use of accessory muscles. Abdomen: Bowel tones present. Soft, mild tenderness to palpation diffusely, nondistended. No hepatosplenomegaly or masses appreciated. Extremities: Trace pretibial edema. No clubbing, cyanosis, or lymphadenopathy appreciated. Skin: Decreased skin turgor, normal temperature; no rash, ulcers, or subcutaneous nodules appreciated. Neurological: Cranial nerves grossly intact. Normal muscle strength, tone, and bulk. Reflexes, coordination, and sensory function within normal limits. No known gait impairment. Psychiatric: Normal mood and affect. Alert and oriented to person, place, and time. Lab and Diagnostics Result Diagram: 07/01/16 0500 07/01/16 0455 X-Rays, CTs and MRIs CT ANGIO CHEST PULMONARY EMBOLISM IMPRESSION: 1. Scattered nodular groundglass like opacities as above. Their overall nonspecific and no priors are available for comparison. Findings are suspicious for infection or inflammation. Recommend interval imaging followup to document resolution and exclude presence of underlying mass lesion. 2. Mild appearance of esophageal thickening as described above. While this could be related to incomplete distention peristalsis, interval followup is recommended if concern for inflammation or mass lesion. 3. Cholelithiasis. 4. No pulmonary embolism. Dictated by: Kim Elizabeth M.D. on 06/30/2016 at 11:50 Approved by: Kim Elizabeth M.D. on 06/30/2016 at 11:50 CT BRAIN WITHOUT CONTRAST IMPRESSION: 1. No acute intracranial process. 2. Moderate atrophy and chronic microvascular ischemic changes. Dictated by: Kim Elizabeth M.D. on 06/30/2016 at 11:41 Approved by: Kim Elizabeth M.D. on 06/30/2016 at 11:41 X-RAY CHEST, TWO VIEWS IMPRESSION: No acute process. Dictated by: Afshin Trammell M.D. on 06/30/2016 at 8:45 Approved by: Afshin Trammell M.D. on 06/30/2016 at 8:45 Assessment & Plan Ashley Alvarez is an 86-year-old female with past medical history significant for hypertension and hyperlipidemia who presents with 1 week of flulike symptoms with decreased oral intake. Admitted for electrolyte disturbances and elevated troponin. Hospital day 1. 1. Hypovolemic hyponatremia, present on admission, active. - Etiology likely multifactorial including poor oral intake, hydrochlorothiazide , and SIADH. - On admission sodium 105. Urine osmolality was 328. Urine creatinine 28. Urine sodium 42. Sodium currently 118. - Initially started on normal saline at 120 mL per hour. Per nephrology switched to 3% normal saline. Nephrology managing fluids. - Close monitoring of sodium levels every 2 hours with goal of no greater than 10 mEq increase in 24 hours.. - Nephrology consulted. Appreciate time and expertise. 2. Hypokalemia, present on admission. Resolved. - Potassium on admission 2.7. Currently 4.1. - No EKG changes. - Potassium chloride 40 mEq in NS - We will continue to monitor. 3. Influenza A, present on admission, active. - Positive for influenza A. - Tamiflu started 07/01/16. - Patient did not receive flu vaccine this year. - Patient with wheezing and productive cough ongoing for last 2-3 weeks. No history of lung disease. Former 30 pack year history quit 40+ years ago. - Urine Legionella, strep pneumonia and influenza screen negative. - Sputum culture pending. - Chest x-ray 06/30 showed no acute cardio pulmonary processes. - DuoNeb every 6 hours when necessary. - Leukocytosis of 14.0 on admission. Currently 17.1. - Holding antibiotic therapy until labs return as patient is afebrile and in no respiratory distress. 4. Hypotension, not present on admission, active. - Patient with MAP in the 40s. Responded appropriately to 1 L fluid bolus. - Continues to need fluid to support blood pressure. - PICC line placed and maybe use for pressors if needed. - We will continue to monitor closely. 5. Elevated troponin of unknown significance, present on admission, active. - Initial troponin 0.057. Patient completely asymptomatic. - EKG revealed no ischemic changes. - Heparin drip discontinued. - Serial troponins trended down currently 0.010. - Echo was grossly normal with no wall motion abnormalities. - Aspirin 81 mg daily. - We will continue home regimen of simvastatin 40 mg daily. - Monitor on telemetry. 6. Hypertension, present on admission, chronic. - Home medications held including: Atenolol 50 mg daily Hydrochlorothiazide 25 mg daily 7. Hyperlipidemia, present on admission, chronic. - Atorvastatin 20 mg daily. Disposition: Likely will discharge home with no needs. Discharge pending electrolyte correction and hemodynamic stability. Pain Evaluation: Adequate Pain Control GI Prophylaxis: Not indicated VTE Prophylaxis: Sub-Q Heparin (Unfractionated) VTE Mechanical Devices: Intermittant Pneumatic CD Resuscitation Status: CPR: Attempt Resuscitation Attending Statement The patient was seen and examined together with Dr. Blanc on 07/01/2016 and I agree with the history, exam and plan as outlined in the note above. . VALERIE BLANC DO Jul 01, 2016 06:48 Alan Pedro MD Jul 03, 2016 17:07
[2016-07-01 16:36] VITALS: BP 115/61; PULSE 66; RESP 19; O2SAT 99
[2016-07-01 16:51] LABS: APPEARANCE,URINE CLEAR (CLEAR,HAZY); COLOR,URINE YELLOW (YELLOW); OCCULT BLOOD,URINE NEGATIVE (NEGATIVE); UROBILINOGEN,URINE NORMAL (NORMAL)
--- NOTE | 2016-07-01 17:57 | NUR ---
Social Work Note: Initial Assessment Data& Assessment: SW met with pt and pt granddaughter at bedside to discuss discharge planning, SW role explained. Ashley Alvarez is a 86 year old female admitted on 06/30/2016 for hyponatremia. Pt has [employer]. Pt lives in [place] alone in an apt. on the first floor. Pt is independent at baseline and only uses a cane for ambulation assistance. Pt denies HH hx or SNF hx. Pt denies VA benefits or LTC insurance. Pt states she has DPOA paperwork completed, SW requested a copy when possible. Pt denies any other needs at this time. SW to continue to follow for PT and MD recommendations and evaluation. Plan: Pt is not medically ready for discharge at this time. Pt denies any other needs at this time. SW to continue to follow for PT and MD recommendations and evaluation. KEN Reyna Addendum: 07/01/16 at 1801 by CHELSEA KELLYE Amended: Links added.
--- NOTE | 2016-07-01 19:35 | NUR ---
Hypotension: Patient has been hypotensive and bradycardic intermittently throughout the day. MD was notified and has been ordering fluids according to BP and sodium levels. Current BP 112/53 (66), HR 70, Sodium 115. Notify MD if MAP not sustaining at 65 and above.
[2016-07-01] MEDS: Cefepime Inj 2,000 MG in Dextrose 5% 50 ML IV SCH (20:18)
[2016-07-01] MEDS: Alum-Mag Hydrox-Simeth 30 mL Suspension PO PRN (20:18)
[2016-07-01] MEDS: Heparin 5,000 Unit/mL Inj SUBQ SCH (20:19)
[2016-07-01 20:35] VITALS: BP 107/47; PULSE 70; RESP 20; O2SAT 98
--- NOTE | 2016-07-01 21:07 | NUR ---
PICC evaluation This RN was notified that a PICC line was needed for this patient. On evaluation of both upper arms for the usual veins used for PICC line place and I was not able to find a vein big enough. The veins ranged from 48% to 54% volume of the catheter. Dr. Mckeon was contacted and informed of these findings. Dr. Mckeon states she will reevaluate the patient. Jeniffer Moura RN
[2016-07-02] VITALS (10 sets, daily range): BP systolic 97–123; BP diastolic 39–92; PULSE 67–91; RESP 16–22; O2SAT 96–98
--- NOTE | 2016-07-02 02:29 | NUR ---
Labs No significant increase in Na level. paged multiple times. Received orders to increase 3% NS from 20 to 30 to 40. Will continue to monitor q2h. Pt remains asymptomatic. A&O x 3. BP stable (although can sometimes be hypotensive). Minimal urine output and had XL BM x1 so far. Care ongoing
[2016-07-02 03:47] LABS: BASOPHILS % (AUTO) 0.1 % (0-3); EOSINOPHILS % (AUTO) 0.8 % (0-5); MONOCYTES % (AUTO) 12.3 % (4-12); Mean Corpuscular Hemoglobin 28.5 pg (27.0-35.0); Mean Corpuscular Volume 81.7 fL (81-100); NEUTROPHILS % (AUTO) 77.8 % (40-74); Platelet Count 268 bil/L (150-400)
[2016-07-02 04:06] LABS: Magnesium 1.8 mg/dL (1.6-2.6); Phosphorus 2.4 mg/dL (2.5-4.9)
[2016-07-02] MEDS: Cefepime Inj 2,000 MG in Dextrose 5% 50 ML IV SCH (07:56)
[2016-07-02] MEDS: Sodium-Potassium Phosphorus Packet PO SCH ×3 (07:57→20:00)
[2016-07-02] MEDS: Heparin 5,000 Unit/mL Inj SUBQ SCH ×2 (08:00→20:00)
[2016-07-02] MEDS ORDERED: 0.9% Sodium Chloride 250 ML IV STA (09:02)
[2016-07-02] MEDS: Albuterol-Ipratropium 3 mL Inhalation Solution NEB PRN (09:37)
[2016-07-02] MEDS ORDERED: Magnesium Chloride SR 64 mg ER24 Tablet PO ONE (09:45)
--- NOTE | 2016-07-02 09:46 | PROG NOTE ---
[address] [address] PROGRESS NOTE PATIENT: CHRISTINE EDGAR : 1930 MR#: [id number] ADMIT: 06/30/2016 JOB ID: [id number] DATE: 07/02/2016 INFECTIOUS DISEASE FOLLOW UP NOTE: REASON FOR FOLLOW UP: Influenza with profound hyponatremia and possible superimposed bacterial infection. INTERVAL HISTORY: Overnight, the patient has been relatively stable. She is awake and alert this morning. Denies fever or chills. No significant shortness of breath though she does have some audible wheezing, which she states is new and not a common problem for her. No GI symptoms noted. This case was discussed with the ICU team. Efforts continue to correct her sodium in a time appropriate manner as well as to evaluate her for superimposed bacterial infection. PHYSICAL EXAMINATION: Reveals a woman who has been completely afebrile, currently 36.7, pulse 67, respiratory rate 16, blood pressure 97/43. She is saturating well on room air and is on no vasopressor agent. She is awake and alert. Oral cavity without change. Lungs with expiratory wheezing which is diffuse and fairly impressive though the patient is still able to saturate well on room air. No focal rales are heard. Cardiac tones: Regular rate and rhythm. Abdomen with some diffuse tenderness but especially localized to the left mid abdomen where there is a sensation of a palpable mass but this was not notable there previously suggesting it could be stool or some other process. No skin rash. Otherwise the patient is stable. LABORATORIES: Include white count stable at 14,000, essentially where she came in, 78% segs, that is also not changed since admission. Creatinine 0.58. LFTs are normal. Albumin 2.5. Urinalysis basically negative. Urine Legionella and pneumococcal antigens are negative. Blood cultures are negative. MRSA screen negative and the respiratory PCR panel positive for flu. Chest CT done two days ago shows some ground-glass infiltrates. IMPRESSION: Most likely this patient has only influenza with possible SIADH secondary to either hydrochlorothiazide, diuretics or flu. She is improving and I see little evidence for superimposed bacterial pneumonia or other process. She has no fever and her procalcitonins are negative. Likewise her physical examination does not seem compatible. The only concerns here might be her borderline blood pressure as well as her persistent moderate leukocytosis which may be secondary to the other problems mentioned but could represent some forme fruste of a bacterial process. RECOMMENDATIONS: 1. Will continue with cefepime through the day and discontinue it tomorrow morning unless we have stronger evidence for bacterial pneumonia or other bacterial superinfection. 2. This case discussed with the ICU team as well as the patient's hospitalist team during rounds this morning in detail.
--- NOTE | 2016-07-02 11:33 | PCM.PNMED ---
Subjective Date of Service Jul 02, 2016 Subjective Nephrology Progress Note: Attending Dr. Yoshi Alvarez is an 86-year-old female with past medical history significant for hypertension and hyperlipidemia who presented to [facility] ED with 1 week of flulike symptoms with decreased oral intake who was admitted for profound hypernatremia , hypophosphatemia, and elevated troponin. Hospital day #3. Overnight there were no acute events. The patient's sodium remained stable with no increase, therefore, 3% NaCl was increased from 20 mL/hr to 40 mL/hr. Telemetry overnight: SR 60-90 first degree AV block, occasional PVCs. The patient is resting in bed comfortably and in no acute distress. She reports that she feels rather fatigued. She reports minimal appetite. She continues to have productive cough of yellow sputum. She has no other complaints. She is voiding and a brief and has had minimal urine output. Exam Vital Signs Vital Sign - Last Date Time Temp Pulse Resp B/P Pulse Ox O2 Delivery O2 Flow Rate FiO2 07/02/16 10:40 79 114/39 07/02/16 09:41 22 97 Room Air 07/02/16 07:39 36.7 06/30/16 14:38 2 Intake and Output 07/01/16 07/01/16 07/02/16 Cumulative From/Thru 15:00 23:00 07:00 06/30/16 08:03 - 07/02/16 06:29 Intake Total 2641 ml 492 ml 7263 ml Output Total 380 ml 580 ml Balance 2261 ml 492 ml 6683 ml Intake Oral 640 ml 840 ml IV Total 2001 ml 492 ml 6423 ml Output Urine Total 380 ml 580 ml # Voids 4 1 8 # Bowel Movements 3 1 5 Exam General: Elderly female lying in bed and in no acute distress, well-developed, well-nourished, appropriately interactive HEENT: Normocephalic, atraumatic. External ears without defect. Hard of hearing. Pupils equal, round, and reactive to light. Anicteric sclerae, moist conjunctivae, and no lid lag. Oropharynx free of erythema and cobble stoning with moist mucosa. Neck: Supple with full range of motion. No jugular venous distension. No bruits. No lymphadenopathy or thyromegaly. Cardiovascular: Regular rhythm and rate without murmurs, rubs, or gallops appreciated Pulmonary: Diffuse wheeze throughout all lung harden with fine crackles at bases bilaterally. Normal respiratory effort with no use of accessory muscles. Abdomen: Soft, obese, mild tenderness to palpation left lower quadrant, nondistended. No hepatosplenomegaly or masses appreciated. Extremities: No clubbing, cyanosis, or edema. Skin: Normal temperature, turgor, and texture; no rash, ulcers, or subcutaneous nodules appreciated. Neurological: Cranial nerves grossly intact. Psychiatric: Normal mood and affect. Alert and oriented to person, place, and time. . IVs and Medications Medications Reviewed: Medications were reviewed in detail Lab and Diagnostics Item Value Date Time Pulse Assessment Both Dorsalis Pedis 07/02/16 0742 Strength Weak to Palpation Calcium Level 6.8 mg/dL *L 07/02/16 0335 Phosphorus Level 2.4 mg/dL L 07/02/16 0335 Magnesium Level 1.8 mg/dL 07/02/16 0335 Total Bilirubin 0.6 mg/dL 07/02/16 033 Aspartate Amino Transf (AST/SGOT) 42 U/L 07/02/16 0335 Alanine Aminotransferase (ALT/SGPT) 23 U/L 07/02/16 0335 Alkaline Phosphatase 50 U/L 07/02/16 0335 Total Protein 4.5 g/dL L 07/02/16 0335 Albumin 2.5 g/dL L 07/02/16 0335 Result Diagram: 07/02/16 0335 07/02/16 0858 Microbiology Respiratory viral PCR positive for Influenza AH3. Sputum culture preliminarily heavily growing gram-negative rods probable for Haemophilus influenza with identification and sensitivities to follow. MRSA screen negative. Blood culture 2 show after 24 hours. Strep pneumoniae and legionella urine antigens negative. . X-Rays, CTs and MRIs CT ANGIO CHEST PULMONARY EMBOLISM IMPRESSION: 1. Scattered nodular groundglass like opacities as above. Their overall nonspecific and no priors are available for comparison. Findings are suspicious for infection or inflammation. Recommend interval imaging followup to document resolution and exclude presence of underlying mass lesion. 2. Mild appearance of esophageal thickening as described above. While this could be related to incomplete distention peristalsis, interval followup is recommended if concern for inflammation or mass lesion. 3. Cholelithiasis. 4. No pulmonary embolism. Dictated by: Kim Elizabeth M.D. on 06/30/2016 at 11:50 Approved by: Kim Elizabeth M.D. on 06/30/2016 at 11:50 CT BRAIN WITHOUT CONTRAST IMPRESSION: 1. No acute intracranial process. 2. Moderate atrophy and chronic microvascular ischemic changes. Dictated by: Kim Elizabeth M.D. on 06/30/2016 at 11:41 Approved by: Kim Elizabeth M.D. on 06/30/2016 at 11:41 X-RAY CHEST, TWO VIEWS IMPRESSION: No acute process. Dictated by: Afshin Trammell M.D. on 06/30/2016 at 8:45 Approved by: Afshin Trammell M.D. on 06/30/2016 at 8:45 . Assessment & Plan Ashley Alvarez is an 86-year-old female with past medical history significant for hypertension and hyperlipidemia who presented to [facility] ED with 1 week of flulike symptoms with decreased oral intake who was admitted for profound hypernatremia , hypophosphatemia, and elevated troponin. Hospital day #3. Assessment and Plan: 1. Chronic hyponatremia, assumed onset over 48 hours. 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 - Her current Na 123. - Will discontinue 3% NaCl, place the patient on a 800 mL fluid restriction, repeat Na level at 1500. - Will readjust fluids if needed accordingly. 2. Influenza pneumonia, with questionable superimposed bacterial infection possibly Haemophilus influenza. - ID has been consulted. 3. Hypokalemia, resolved. 4. Hypophosphatemia. - Continue Phos NaK powder for phosphate repletion and encourage PO intake. 5. Elevation of troponin. 6. H/o HTN. . GI Prophylaxis: Not indicated VTE Prophylaxis: Sub-Q Heparin (Unfractionated) VTE Mechanical Devices: Intermittant Pneumatic CD Resuscitation Status: CPR: Attempt Resuscitation Zara Baldwin DO Jul 02, 2016 11:32 Josie Larsen MD Jul 02, 2016 14:22
--- NOTE | 2016-07-02 17:24 | PCM.PNMED ---
Subjective Date of Service Jul 02, 2016 Subjective Ashley Alvarez is an 86-year-old female with past medical history significant for hypertension and hyperlipidemia who presents with 1 week of flulike symptoms with decreased oral intake. Admitted for electrolyte disturbances and elevated troponin. Hospital day 3. Overnight: Patient was placed back on 3% NS at 20 ml/hr with minimal improvement in sodium level. Rate was increased to 30 and then 40 ml/hr subsequently sodium began to improve. MAPs remained in the low 60s. Today: Patient is alert and oriented but appears more lethargic and is less energetic. Considerably weaker during exam. Complains of weakness, fatigue, and mild nausea. Tolerating small amounts of food. Incontinent of urine. Remaining review of systems negative. Exam Vital Signs Vital Sign - Last Date Time Temp Pulse Resp B/P Pulse Ox O2 Delivery O2 Flow Rate FiO2 07/02/16 05:24 36.9 70 16 115/41 98 Room Air 06/30/16 14:38 2 Intake and Output 07/01/16 07/01/16 07/02/16 Cumulative From/Thru 15:00 23:00 07:00 06/30/16 08:03 - 07/02/16 06:29 Intake Total 2641 ml 492 ml 7263 ml Output Total 380 ml 580 ml Balance 2261 ml 492 ml 6683 ml Intake Oral 640 ml 840 ml IV Total 2001 ml 492 ml 6423 ml Output Urine Total 380 ml 580 ml # Voids 4 1 8 # Bowel Movements 3 1 5 Exam General: Lethargic but no acute distress. Well-developed, well-nourished, appropriately interactive HEENT: Normocephalic, atraumatic. External ears without defect. Pupils equal, round, and reactive to light and accommodation. Oral mucosa dry but improved. Neck: Supple with full range of motion. No jugular venous distension. No bruits. No lymphadenopathy or thyromegaly. Cardiovascular: Regular rate and rhythm with no murmurs, rubs, or gallops appreciated Pulmonary: Wheezes bilaterally. Normal respiratory effort with no use of accessory muscles. Abdomen: Bowel tones present. Soft, mild tenderness to palpation diffusely, nondistended. No hepatosplenomegaly or masses appreciated. Extremities: Trace pretibial edema. No clubbing, cyanosis, or lymphadenopathy appreciated. Skin: Decreased skin turgor, normal temperature; no rash, ulcers, or subcutaneous nodules appreciated. Neurological: Cranial nerves grossly intact. Normal muscle strength, tone, and bulk. Reflexes, coordination, and sensory function within normal limits. No known gait impairment. Psychiatric: Normal mood and affect. Alert and oriented to person, place, and time. Lab and Diagnostics Test 07/02/16 03:35 07/02/16 05:20 Potassium Level 4.5mEq/L Chloride Level 87mEq/L Carbon Dioxide Level 21mmol/L Blood Urea Nitrogen 11mg/dL Creatinine 0.58mg/dL Estimat Glomerular Filtration Rate 142mL/min Glucose Level 111mg/dL Calcium Level 6.8mg/dL Phosphorus Level 2.4mg/dL Magnesium Level 1.8mg/dL Total Bilirubin 0.6mg/dL Aspartate Amino Transf (AST/SGOT) 42U/L Alanine Aminotransferase (ALT/SGPT) 23U/L Alkaline Phosphatase 50U/L Total Protein 4.5g/dL Albumin 2.5g/dL Sodium Level 120mEq/L Result Diagram: 07/02/16 0335 07/02/16 0520 X-Rays, CTs and MRIs CT ANGIO CHEST PULMONARY EMBOLISM IMPRESSION: 1. Scattered nodular groundglass like opacities as above. Their overall nonspecific and no priors are available for comparison. Findings are suspicious for infection or inflammation. Recommend interval imaging followup to document resolution and exclude presence of underlying mass lesion. 2. Mild appearance of esophageal thickening as described above. While this could be related to incomplete distention peristalsis, interval followup is recommended if concern for inflammation or mass lesion. 3. Cholelithiasis. 4. No pulmonary embolism. Dictated by: Kim Elizabeth M.D. on 06/30/2016 at 11:50 Approved by: Kim Elizabeth M.D. on 06/30/2016 at 11:50 CT BRAIN WITHOUT CONTRAST IMPRESSION: 1. No acute intracranial process. 2. Moderate atrophy and chronic microvascular ischemic changes. Dictated by: Kim Elizabeth M.D. on 06/30/2016 at 11:41 Approved by: Kim Elizabeth M.D. on 06/30/2016 at 11:41 X-RAY CHEST, TWO VIEWS IMPRESSION: No acute process. Dictated by: Afshin Trammell M.D. on 06/30/2016 at 8:45 Approved by: Afshin Trammell M.D. on 06/30/2016 at 8:45 Assessment & Plan Ashley Alvarez is an 86-year-old female with past medical history significant for hypertension and hyperlipidemia who presents with 1 week of flulike symptoms with decreased oral intake. Admitted for electrolyte disturbances and elevated troponin. Hospital day 3. 1. Hypovolemic hyponatremia, present on admission, active. - Etiology likely multifactorial including poor oral intake, hydrochlorothiazide , and SIADH. - On admission sodium 105. Urine osmolality was 328. Urine creatinine 28. Urine sodium 42. Sodium currently 118. - Initially started on normal saline at 120 mL per hour. Per nephrology switched to 3% normal saline. Nephrology managing fluids. - Fluid restriction of 800 ml. - Close monitoring of sodium levels. - Nephrology consulted. Appreciate time and expertise. 2. Hypokalemia, present on admission. Resolved. - Potassium on admission 2.7. Currently 4.1. - No EKG changes. - Potassium chloride 40 mEq in NS - We will continue to monitor. 3. Influenza A, present on admission, active. - Positive for influenza A. - Tamiflu started 07/01/16. - Patient did not receive flu vaccine this year. - Patient with wheezing and productive cough ongoing for last 2-3 weeks. No history of lung disease. Former 30 pack year history quit 40+ years ago. - Urine Legionella, strep pneumonia and influenza screen negative. - Sputum culture pending. - Chest x-ray 06/30 showed no acute cardio pulmonary processes. - DuoNeb every 6 hours when necessary. 4. Hypotension, not present on admission, active. - Patient with MAP in the 40s on 07/01 and responded appropriately to 1 L fluid bolus. - Continues to have low MAPs. - Midodrine 5 mg TID started as fluid resuscitation contradicts treatment for patients SIADH. - We will continue to monitor closely. 5. Elevated troponin of unknown significance, present on admission, active. - Initial troponin 0.057. Patient completely asymptomatic. - EKG revealed no ischemic changes. - Heparin drip discontinued. - Serial troponins trended down currently 0.010. - Echo was grossly normal with no wall motion abnormalities. - Aspirin 81 mg daily. - We will continue home regimen of simvastatin 40 mg daily. - Monitor on telemetry. 6. Hypertension, present on admission, chronic. - Home medications held including: Atenolol 50 mg daily Hydrochlorothiazide 25 mg daily 7. Hyperlipidemia, present on admission, chronic. - Atorvastatin 20 mg daily. Disposition: Discussion with family about possible SNF or home health. Discharge pending electrolyte correction and hemodynamic stability. Pain Evaluation: Adequate Pain Control GI Prophylaxis: Not indicated VTE Prophylaxis: Sub-Q Heparin (Unfractionated) VTE Mechanical Devices: Intermittant Pneumatic CD Resuscitation Status: CPR: Attempt Resuscitation Attending Statement The patient was seen and examined together with Dr. Blanc on 07/02/2016 and I agree with the history, exam and plan as outlined in the note above. . VALERIE BLANC DO Jul 02, 2016 06:43 Alan Pedro MD Jul 03, 2016 16:51
[2016-07-02] MEDS ORDERED: SIMV80TA4 PO (18:04)
[2016-07-02] MEDS ORDERED: ATEN50TA PO (18:04)
[2016-07-02] MEDS ORDERED: HYDR25TA4 PO (18:04)
[2016-07-02] MEDS ORDERED: ALBU18HF INH (18:04)
[2016-07-02] MEDS ORDERED: OMEP20CA11 PO (18:05)
--- NOTE | 2016-07-02 18:43 | NUR ---
Cardiac/neuro/labs SR with 1st degree block, occasional PVCs. Blood pressure maintained within set parameters. Patient remains alert and oriented. Last sodium lab draw, 121. Fluid restriction in place. Pt given sodium tablets as scheduled. Plan to redraw sodium level at 19:00, if sodium level does not increase, plan to restart 3% saline.
[2016-07-02] MEDS ORDERED: Vancomycin Serum Trough XX ONE (20:00)
[2016-07-03] VITALS (16 sets, daily range): BP systolic 97–145; BP diastolic 40–77; PULSE 65–83; RESP 14–24; O2SAT 97–99
[2016-07-03 05:44] LABS: BASOPHILS % (AUTO) 0.2 % (0-3); EOSINOPHILS % (AUTO) 2.4 % (0-5); MONOCYTES % (AUTO) 13.3 % (4-12); Mean Corpuscular Hemoglobin 28.9 pg (27.0-35.0); Mean Corpuscular Volume 83.8 fL (81-100); NEUTROPHILS % (AUTO) 69.8 % (40-74); Platelet Count 285 bil/L (150-400)
[2016-07-03 05:59] LABS: Magnesium 1.8 mg/dL (1.6-2.6); Phosphorus 2.1 mg/dL (2.5-4.9)
--- NOTE | 2016-07-03 07:34 | NUR ---
Respiratory Pt found sleeping in bed breathing RA. Sat 96%, HR 78, RR 20, BS expiratory wheeze. Pt was sleeping, will revisit and offer Tx.
[2016-07-03] MEDS: Heparin 5,000 Unit/mL Inj SUBQ SCH ×2 (07:48→20:13)
[2016-07-03] MEDS: Sodium-Potassium Phosphorus Packet PO SCH ×3 (07:49→20:13)
--- NOTE | 2016-07-03 08:16 | NUR ---
Sleep Pt reports goal of care is sleep. Care clustered for limited interruptions. Care ongoing
--- NOTE | 2016-07-03 09:23 | NUR ---
NUTRITION FOLLOW-UP: Assess: 86 YO female admitted to CCU profound hyponatremia, influenza A, and possible bacterial infection. She has had minimal UOP. Nephrology managing fluids, and she is on a fluid restriction. Prior to admission pt was experiencing flu-like symptoms and had a poor appetite. Pt w/ possible SIADH. Pt states that she has not eaten much for the past week and her appetite continues to be decreased. Pt states that she has not noticed any unintentional wt loss. Pt wondering about nutrition support and receiving calories via IV. PO intake 50% x 1 recorded heart healthy consistent carbohydrate meal and supplements. Pt. downgraded to PCU status this morning. Code status: full. PMHx: HTN, HLD. LABS: Reviewed. Na 124, Chloride 91, Glu 102, Ca 6.8, Phos 2.1, Alb 2.5. MEDICATIONS: Reviewed. Tamiflu. DIET: Heart Healthy/Consistent Carb. PO intake 50% x 1 tray. 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 Skin integrity: No issues noted Overall Appearance: Overweight elderly woman resting in bed - no signs of wasting ANTHROPOMETRICS: Current Wt: 78.5 kg BMI: 36.0 kg/[id number] Wt: 76.5 kg IBW: 43.6 kgRecent wt changes: None noted ESTIMATED NEEDS: Calories: 3248-2428 kcal/d (20-25 kcal/kg/d) Protein: 50-60 g/kg/d (1.2-1.5 g/kg/d IBW) Fluids: ~1550 ml/g NUTRITION DIAGNOSIS: 1) Inadequate oral intake related to acute illness as evidenced by reported decreased appetite/intake - IMPROVED. INTERVENTION: 1) Will continue Gelatein Plus and yogurt TID. 2) Discussed importance of adequate protein/calorie intake 07/01. 3) Discussed options and implications of nutrition support 07/01. Informed pt that our first priority is to have pt eating by mouth and that the next option would be TF via NG/DobHoff before TPN. MONITOR/EVALUATE: PO intake, Na, Wt, Nutrition status, POC. Will follow per moderate nutrition risk guidelines.
[2016-07-03] MEDS: 0.9% Sodium Chloride 250 ML IV SCH (09:30)
--- NOTE | 2016-07-03 10:01 | PCM.PNMED ---
Subjective Date of Service Jul 03, 2016 Subjective Ashley Alvarez is an 86-year-old female with past medical history significant for hypertension and hyperlipidemia who presents with 1 week of flulike symptoms with decreased oral intake. Admitted for electrolyte disturbances and elevated troponin. Hospital day 4. Overnight: No acute events overnight. Patient's MAPs ranging from 60 to 70s. Patient states she slept well overnight. Today: Patient's hemoglobin and hematocrit found to be 6.6 and 19.1. Patient agrees to blood transfusion. Patient endorses feeling weak and fatigued but states nausea and abdominal pain have improved. She denies any chest pain, shortness of breath, palpitations, or diarrhea. Remaining review of systems negative. Exam Vital Signs Vital Sign - Last Date Time Temp Pulse Resp B/P Pulse Ox O2 Delivery O2 Flow Rate FiO2 07/03/16 01:31 37.0 83 16 136/48 98 Room Air 06/30/16 14:38 2 Intake and Output 07/02/16 07/02/16 07/03/16 Cumulative From/Thru 15:00 23:00 07:00 06/30/16 08:03 - 07/02/16 18:33 Intake Total 858 ml 8121 ml Output Total 580 ml Balance 858 ml 7541 ml Intake Oral 650 ml 1490 ml IV Total 208 ml 6631 ml Output Urine Total 580 ml # Voids 5 13 # Bowel Movements 5 Exam General: Lethargic but no acute distress. Well-developed, well-nourished, appropriately interactive HEENT: Normocephalic, atraumatic. External ears without defect. Pupils equal, round, and reactive to light and accommodation. Oral mucosa moist. Neck: Supple with full range of motion. No jugular venous distension. No bruits. No lymphadenopathy or thyromegaly. Cardiovascular: Regular rate and rhythm with no murmurs, rubs, or gallops appreciated Pulmonary: Wheezes bilaterally. Normal respiratory effort with no use of accessory muscles. Abdomen: Bowel tones present. Soft, mild tenderness to palpation diffusely, nondistended. No hepatosplenomegaly or masses appreciated. Extremities: Trace pretibial edema. No clubbing, cyanosis, or lymphadenopathy appreciated. Skin: Decreased skin turgor, normal temperature; no rash, ulcers, or subcutaneous nodules appreciated. Neurological: Cranial nerves grossly intact. Normal muscle strength, tone, and bulk. Reflexes, coordination, and sensory function within normal limits. No known gait impairment. Psychiatric: Normal mood and affect. Alert and oriented to person, place, and time. Lab and Diagnostics Corrected Ca: 8 CMP Test 06/30/16 09:00 06/30/16 10:20 06/30/16 11:13 07/01/16 04:55 Pro-B-Type Natriuretic Peptide 3815pg/mL Osmolality 227 Lactic Acid Level 0.9mmol/L Uric Acid 2.8mg/dL Total Creatine Kinase 1263U/L Creatine Kinase MB 28.9ng/mL Creatine Kinase MB % 2.3% Thyroid Stimulating Hormone (TSH) 2.340uIU/mL Hold José Top Tube Received Troponin T 0.010ug/L Procalcitonin 0.08ng/mL Test 07/02/16 08:58 07/03/16 05:16 Ionized Calcium (Calculated) 3.70mg/dL Sodium Level 124mEq/L Potassium Level 4.6mEq/L Chloride Level 91mEq/L Carbon Dioxide Level 25mmol/L Blood Urea Nitrogen 7mg/dL Creatinine 0.66mg/dL Estimat Glomerular Filtration Rate 122mL/min Glucose Level 102mg/dL Calcium Level 6.8mg/dL Phosphorus Level 2.1mg/dL Magnesium Level 1.8mg/dL Total Bilirubin 0.7mg/dL Aspartate Amino Transf (AST/SGOT) 34U/L Alanine Aminotransferase (ALT/SGPT) 21U/L Alkaline Phosphatase 50U/L Total Protein 4.4g/dL Albumin 2.5g/dL Result Diagram: 07/03/1616 07/03/16 0516 Microbiology Blood Culture: 1 out of 2 bottles + Gram positive cocci? Staph Respiratory viral PCR positive for Influenza AH3. Sputum culture preliminarily heavily growing gram-negative rods probable for Haemophilus influenza with identification and sensitivities to follow. MRSA screen negative. Strep pneumoniae and legionella urine antigens negative. X-Rays, CTs and MRIs CT ANGIO CHEST PULMONARY EMBOLISM IMPRESSION: 1. Scattered nodular groundglass like opacities as above. Their overall nonspecific and no priors are available for comparison. Findings are suspicious for infection or inflammation. Recommend interval imaging followup to document resolution and exclude presence of underlying mass lesion. 2. Mild appearance of esophageal thickening as described above. While this could be related to incomplete distention peristalsis, interval followup is recommended if concern for inflammation or mass lesion. 3. Cholelithiasis. 4. No pulmonary embolism. Dictated by: Kim Elizabeth M.D. on 06/30/2016 at 11:50 Approved by: Kim Elizabeth M.D. on 06/30/2016 at 11:50 CT BRAIN WITHOUT CONTRAST IMPRESSION: 1. No acute intracranial process. 2. Moderate atrophy and chronic microvascular ischemic changes. Dictated by: Kim Elizabeth M.D. on 06/30/2016 at 11:41 Approved by: Kim Elizabeth M.D. on 06/30/2016 at 11:41 X-RAY CHEST, TWO VIEWS IMPRESSION: No acute process. Dictated by: Afshin Trammell M.D. on 06/30/2016 at 8:45 Approved by: Afshin Trammell M.D. on 06/30/2016 at 8:45 Assessment & Plan Ashley Alvarez is an 86-year-old female with past medical history significant for hypertension and hyperlipidemia who presents with 1 week of flulike symptoms with decreased oral intake. Admitted for electrolyte disturbances and elevated troponin. Hospital day 4. 1. Hypovolemic hyponatremia, present on admission, active. - Etiology likely multifactorial including poor oral intake, hydrochlorothiazide , and SIADH. - On admission sodium 105. Urine osmolality was 328. Urine creatinine 28. Urine sodium 42. Sodium currently 118. - 3% normal saline stopped at 07/02/16 around 1999. - Strict fluid restriction of 800 ml. - Sodium of 124 currently (07/03/16). - Nephrology consulted. Appreciate time and expertise. 2. Influenza A, present on admission, active. - Positive for influenza A. - Tamiflu started 07/01/16. - Patient did not receive flu vaccine this year. - Patient with wheezing and productive cough ongoing for last 2-3 weeks. No history of lung disease. Former 30 pack year history quit 40+ years ago. - Urine Legionella, strep pneumonia and influenza screen negative. - Sputum culture pending. - Chest x-ray 06/30 showed no acute cardio pulmonary processes. - DuoNeb every 6 hours when necessary. 3. Hypotension, not present on admission, active. - Patient with MAP in the 40s on 07/01 and responded appropriately to 1 L fluid bolus. - Continues to have low MAPs. - Midodrine 5 mg TID started 07/02 as fluid resuscitation contradicts treatment for patients SIADH. - We will continue to monitor closely. 4. Anemia, not present on admission, active. - Likely secondary to frequent blood draws and fluid resuscitation. - Hemoglobin and hematocrit 6.6 and 19.1 on 07/03/16. - 2 units PRBCs ordered and planned to transfuse. 5. Elevated troponin of unknown significance, present on admission, resolved. - Initial troponin 0.057. Patient completely asymptomatic. - EKG revealed no ischemic changes. - Heparin drip discontinued. - Serial troponins trended down currently 0.010. - Echo was grossly normal with no wall motion abnormalities. - Aspirin 81 mg daily. - We will continue home regimen of simvastatin 40 mg daily. - Monitor on telemetry. 6. Hypertension, present on admission, chronic. - Home medications held including: Atenolol 50 mg daily Hydrochlorothiazide 25 mg daily 7. Hyperlipidemia, present on admission, chronic. - Atorvastatin 20 mg daily. 8. Hypokalemia, present on admission. Resolved. - Potassium on admission 2.7. - No EKG changes. - We will continue to monitor. Disposition: Discussion with family about possible SNF or home health. Discharge pending electrolyte correction and hemodynamic stability. GI Prophylaxis: Not indicated VTE Prophylaxis: Sub-Q Heparin (Unfractionated) VTE Mechanical Devices: Intermittant Pneumatic CD Resuscitation Status: CPR: Attempt Resuscitation Attending Statement The patient was seen and examined together with Dr. Blanc on 07/03/2016 and I agree with the history, exam and plan as outlined in the note above. . VALERIE BLANC DO Jul 03, 2016 06:27 Alan Pedro MD Jul 03, 2016 17:08
--- NOTE | 2016-07-03 10:17 | NUR ---
transfusion/cardiac/labs First unit of PRBCs transfusing, pt tolerating without any signs or symptoms of transfusion reaction. Continues in SR with 1st degree AV block and PVCs. MAP >60. Afebrile. Lungs diminished with audible expiratory wheezes. Oxygen saturation maintained >95% on room air. Productive cough. Denies SOA. Sodium level 124 with 8:30 draw, plan to recheck sodium level with routine labs in AM.
--- NOTE | 2016-07-03 10:24 | PROG NOTE ---
[address] [address] PROGRESS NOTE PATIENT: CHRISTINE EDGAR : 1930 MR#: [id number] ADMIT: 06/30/2016 JOB ID: [id number] DATE: 07/03/2016 INFECTIOUS DISEASE FOLLOW UP NOTE: REASON FOR FOLLOWUP: Influenza A, profound hyponatremia, and possible H flu tracheobronchitis. INTERVAL HISTORY: Overnight, the patient reports she continues to feel "like she has the flu." She says she is weak and fatigued and she notices that she has some wheezing. She feels mildly short of breath but not severe. No fevers, chills or sweats. No sore throat or headache. No myalgias or arthralgias. PHYSICAL EXAMINATION: Reveals an afebrile woman, temperature 36.9, pulse 77, respiratory rate 24, blood pressure 132/63. She is in no acute distress. Awake and alert. Oral cavity without evidence of pharyngitis. Lungs with expiratory wheezes as yesterday. Cardiac tones: Regular with occasional ectopic beat which corresponds to a PVC seen on the monitor. Abdomen negative. No rash. LABORATORIES: Include white count slowly declining now 12,900, with basically normal differential. Creatinine 0.66. LFTs are normal. Albumin 2.5. Her sodium is now up to 124. Procalcitonins have been 0 or less than 0.1. Micro studies are of interest. One of four blood cultures is now growing a coag-negative staph, which is a contaminant. Of additional interest is the sputum which is growing H parainfluenza which may be a colonizer or a pathogen in this circumstance as well as a minimal amount of Aspergillus fumigatus. Note that both the H parainfluenza and the Aspergillus fumigatus grew from two sputum samples that were obtained on the same day. IMAGING: Includes the CT done three days ago now which shows some nodular ground-glass infiltrates. 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 This may have been precipitated by influenza A. Overall her situation is improving steadily and we are left with the interesting findings from the sputum cultures. The H parainfluenza in this elderly woman could represent simple colonization though it did grow in heavy growth in this patient who continues to have some degree of productive cough. I think it probably warrants treatment for a few days. The more complicated issue is the Aspergillus fumigatus. This could be seen with an ABPA type syndrome, which we do not have clear evidence for, or perhaps, it could be a more invasive form of Aspergillus or even perhaps just a colonizer. At this point, there is little to suggest invasive Aspergillus or ABPA and I would be inclined to watch at this point. RECOMMENDATIONS: 1. I would restart the patient on antibiotics and this could be just oral amoxicillin as we know the H parainfluenza is beta lactamase negative so we will start on amoxicillin 1 g t.i.d. with an intention of continuing about five days through July 07. 2. The Aspergillus does not need any specific treatment but just to make sure there is nothing going on here, I would check Aspergillus, galactomannan antigen as well as Aspergillus antibodies. 3. The patient should follow up with me in perhaps a couple weeks to make certain that there are no additional Aspergillus related issues and to follow up on these labs. Alternatively she could be seen in Pulmonary but it is probably simpler for her to get into the ID clinic. 4. As there are no active ID issues, ID will go ahead and sign off with the recommendation that she complete five days of the oral amoxicillin and that we get the Aspergillus studies going though no specific therapy for the Aspergillus is indicated at this time. Do not hesitate to call me if there are questions. [facility]
--- NOTE | 2016-07-03 15:31 | PCM.PNMED ---
Subjective Date of Service Jul 03, 2016 Subjective feeling weak, Hb dropped to 6.6. receiving blood transfusion. Exam Vital Signs Vital Sign - Last Date Time Temp Pulse Resp B/P Pulse Ox O2 Delivery O2 Flow Rate FiO2 07/03/16 14:05 36.9 78 14 131/46 98 Room Air 06/30/16 14:38 2 Intake and Output 07/02/16 07/02/16 07/03/16 Cumulative From/Thru 15:00 23:00 07:00 06/30/16 08:03 - 07/02/16 18:33 Intake Total 858 ml 8121 ml Output Total 580 ml Balance 858 ml 7541 ml Intake Oral 650 ml 1490 ml IV Total 208 ml 6631 ml Output Urine Total 580 ml # Voids 5 13 # Bowel Movements 5 Exam PHYSICAL EXAMINATION: General appearance: Awake, alert, oriented x3. HEENT: No pallor, no jaundice. No JVD. No lymphadenopathy. No thyroid enlargement. Dry mucous membranes. Heart: Regular rhythm. Normal S1, S2. No murmurs, rubs, or gallops. Lungs: Wheezing bilaterally. Fine crackles at the bases. Abdomen: Soft, active bowel sounds. Nontender, nondistended, no hepatosplenomegaly. Extremity: No edema, cyanosis or clubbing of fingers. Lab and Diagnostics Result Diagram: 07/03/16 0640 07/03/16 0830 Microbiology Blood Culture: 1 out of 2 bottles + Gram positive cocci? Staph Respiratory viral PCR positive for Influenza AH3. Sputum culture preliminarily heavily growing gram-negative rods probable for Haemophilus influenza with identification and sensitivities to follow. MRSA screen negative. Strep pneumoniae and legionella urine antigens negative. X-Rays, CTs and MRIs CT ANGIO CHEST PULMONARY EMBOLISM IMPRESSION: 1. Scattered nodular groundglass like opacities as above. Their overall nonspecific and no priors are available for comparison. Findings are suspicious for infection or inflammation. Recommend interval imaging followup to document resolution and exclude presence of underlying mass lesion. 2. Mild appearance of esophageal thickening as described above. While this could be related to incomplete distention peristalsis, interval followup is recommended if concern for inflammation or mass lesion. 3. Cholelithiasis. 4. No pulmonary embolism. Dictated by: Kim Elizabeth M.D. on 06/30/2016 at 11:50 Approved by: Kim Elizabeth M.D. on 06/30/2016 at 11:50 CT BRAIN WITHOUT CONTRAST IMPRESSION: 1. No acute intracranial process. 2. Moderate atrophy and chronic microvascular ischemic changes. Dictated by: Kim Elizabeth M.D. on 06/30/2016 at 11:41 Approved by: Kim Elizabeth M.D. on 06/30/2016 at 11:41 X-RAY CHEST, TWO VIEWS IMPRESSION: No acute process. Dictated by: Afshin Trammell M.D. on 06/30/2016 at 8:45 Approved by: Afshin Trammell M.D. on 06/30/2016 at 8:45 Assessment & Plan ASSESSMENT: 1. 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 - continue fluid restriction and salt tab 2 gm TID. 2. Influenza infection. 3. Acute anemia due to acute blood loss from frequent draws. 3. h/o HTN. 4. Dyslipidemia. Plan: d/c serum Na Q 4 h. continue salt tab 2 gm TID and fluid restriction. GI Prophylaxis: Not indicated VTE Prophylaxis: Sub-Q Heparin (Unfractionated) VTE Mechanical Devices: Intermittant Pneumatic CD Resuscitation Status: CPR: Attempt Resuscitation Josie Larsen MD Jul 03, 2016 15:31
--- NOTE | 2016-07-03 16:55 | NUR ---
Cardiac/labs/strength Normotensive, scheduled midodrine held. HR 70s. 2 units PRBCs transfused, hgb increased to 9.2. Sodium 125 with lab draw at 15:00. Tolerating activity, strength slowly improving.
[2016-07-04] VITALS (9 sets, daily range): BP systolic 128–163; BP diastolic 41–79; PULSE 70–99; RESP 16–24; O2SAT 94–97
[2016-07-04 03:29] LABS: Mean Corpuscular Hemoglobin 29.4 pg (27.0-35.0); Mean Corpuscular Volume 83.1 fL (81-100); Platelet Count 296 bil/L (150-400)
[2016-07-04 03:47] LABS: Magnesium 1.7 mg/dL (1.6-2.6)
[2016-07-04 04:13] LABS: BASOPHILS % (AUTO) 0 % (0-3); EOSINOPHILS % (AUTO) 3 % (0-5); MONOCYTES % (AUTO) 14 % (4-12); NEUTROPHILS % (AUTO) 69 % (40-74)
--- NOTE | 2016-07-04 06:18 | NUR ---
Rest/Fluid Restriction/Sodium Patient resting in bed all shift; woke from sleep several times to void. Patient held to 800ml/24 hour fluid restriction; reports feeling very dry on this restricted amount of fluids. Oral care provided with partial relief of patient's discomfort. Morning lab draw returned wit h a sodium of 125. Continue to monitor.
[2016-07-04] MEDS: 0.9% Sodium Chloride 250 ML IV SCH (07:17)
--- NOTE | 2016-07-04 08:58 | PCM.PNMED ---
Subjective Date of Service Jul 04, 2016 Subjective Ashley Alvarez is an 86-year-old female with past medical history significant for hypertension and hyperlipidemia who presents with 1 week of flulike symptoms with decreased oral intake. Admitted for electrolyte disturbances and elevated troponin. Hospital day 5. Overnight: No acute events overnight. Patient states she slept as well as can be expected for the hospital. Today: Patient feels slightly stronger. She was able to stand and sit in chair with physical therapy. She continues to have some mild abdominal discomfort but denies nausea, vomiting, constipation, diarrhea, fever, or chills. She endorses thirst but is currently on a 800 ml water restriction for SIADH. Remaining review of systems negative. Exam Vital Signs Vital Sign - Last Date Time Temp Pulse Resp B/P Pulse Ox O2 Delivery O2 Flow Rate FiO2 07/04/16 05:22 73 07/04/16 04:47 36.8 20 132/60 97 Room Air 06/30/16 14:38 2 Intake and Output 07/03/16 07/03/16 07/04/16 Cumulative From/Thru 15:00 23:00 07:00 06/30/16 08:03 - 07/04/16 06:40 Intake Total 902 ml 1252 ml 20 ml 70065 ml Output Total 580 ml Balance 902 ml 1252 ml 20 ml 9715 ml Intake Oral 250 ml 605 ml 2345 ml IV Total 52 ml 647 ml 20 ml 7350 ml Packed Cells 600 ml 600 ml Output Urine Total 580 ml # Voids 2 5 20 # Bowel Movements 5 Exam General: Lethargic but no acute distress. Well-developed, well-nourished, appropriately interactive HEENT: Normocephalic, atraumatic. External ears without defect. Pupils equal, round, and reactive to light and accommodation. Oral mucosa moist. Neck: Supple with full range of motion. No jugular venous distension. No bruits. No lymphadenopathy or thyromegaly. Cardiovascular: Regular rate and rhythm with no murmurs, rubs, or gallops appreciated Pulmonary: Faint wheezes bilaterally. Normal respiratory effort with no use of accessory muscles. Abdomen: Bowel tones present. Soft, mild tenderness to palpation diffusely, nondistended. No hepatosplenomegaly or masses appreciated. Extremities: Trace pretibial edema. No clubbing, cyanosis, or lymphadenopathy appreciated. Skin: Decreased skin turgor, normal temperature; no rash, ulcers, or subcutaneous nodules appreciated. Neurological: Cranial nerves grossly intact. Normal muscle strength, tone, and bulk. Reflexes, coordination, and sensory function within normal limits. No known gait impairment. Psychiatric: Normal mood and affect. Alert and oriented to person, place, and time. Lab and Diagnostics Result Diagram: 07/04/1631307/04/16313 Microbiology Blood Culture: 1 out of 2 bottles + Gram positive cocci? Staph Respiratory viral PCR positive for Influenza AH3. Sputum culture with Haemophilus parainfluenza and Aspergillus fumigatus MRSA screen negative. Strep pneumoniae and legionella urine antigens negative. X-Rays, CTs and MRIs CT ANGIO CHEST PULMONARY EMBOLISM IMPRESSION: 1. Scattered nodular groundglass like opacities as above. Their overall nonspecific and no priors are available for comparison. Findings are suspicious for infection or inflammation. Recommend interval imaging followup to document resolution and exclude presence of underlying mass lesion. 2. Mild appearance of esophageal thickening as described above. While this could be related to incomplete distention peristalsis, interval followup is recommended if concern for inflammation or mass lesion. 3. Cholelithiasis. 4. No pulmonary embolism. Dictated by: Kim Elizabeth M.D. on 06/30/2016 at 11:50 Approved by: Kim Elizabeth M.D. on 06/30/2016 at 11:50 CT BRAIN WITHOUT CONTRAST IMPRESSION: 1. No acute intracranial process. 2. Moderate atrophy and chronic microvascular ischemic changes. Dictated by: Kim Elizabeth M.D. on 06/30/2016 at 11:41 Approved by: Kim Elizabeth M.D. on 06/30/2016 at 11:41 X-RAY CHEST, TWO VIEWS IMPRESSION: No acute process. Dictated by: Afshin Trammell M.D. on 06/30/2016 at 8:45 Approved by: Afshin Trammell M.D. on 06/30/2016 at 8:45 Assessment & Plan Ashley Alvarez is an 86-year-old female with past medical history significant for hypertension and hyperlipidemia who presents with 1 week of flulike symptoms with decreased oral intake. Admitted for electrolyte disturbances and elevated troponin. Hospital day 5. 1. Hypovolemic hyponatremia, present on admission, active. - Etiology likely SIADH secondary to Influenza A and worsened by poor oral intake and hydrochlorothiazide. - On admission sodium 105. Urine osmolality was 328. Urine creatinine 28. Urine sodium 42. Sodium currently 118. - 3% normal saline stopped at 07/02/16 around 1999. - Strict fluid restriction of 800 ml. - Sodium of 125 currently (07/04/16). - Nephrology consulted. Appreciate time and expertise. 2. Influenza A, present on admission, active. - Tamiflu started 07/01/16. - Patient did not receive flu vaccine this year. - Patient with wheezing and productive cough ongoing for last 2-3 weeks. No history of lung disease. Former 30 pack year history quit 40+ years ago. - Microbiology as above. - Chest x-ray 06/30 showed no acute cardio pulmonary processes. - DuoNeb every 6 hours when necessary. 3. Possible H. parainfluenza, active. - Sputum cultures positive x2 - Amoxicillin 1 gram TID started 07/03/16. Complete 5 day course. - Supportive therapy. 4. Hypotension, not present on admission, resolved. - Patient with MAP in the 40s on 07/01 and responded appropriately to 1 L fluid bolus, but continued to have low MAP. - Midodrine discontinued. - We will continue to monitor closely. 5. Anemia, not present on admission, resolved. - Likely secondary to frequent blood draws and fluid resuscitation. - Hemoglobin and hematocrit 6.6 and 19.1 on 07/03/16. - 2 units PRBCs ordered transfused 07/03 with appropriate response. 6. Elevated troponin of unknown significance, present on admission, resolved. - Initial troponin 0.057. Patient completely asymptomatic. - EKG revealed no ischemic changes. - Heparin drip discontinued. - Serial troponins normalized. - Echo was grossly normal with no wall motion abnormalities. - Aspirin 81 mg daily. 7. Hypertension, present on admission, chronic. - Home medications held including: Atenolol 50 mg daily and Hydrochlorothiazide 25 mg daily 8. Hyperlipidemia, present on admission, chronic. - Atorvastatin 20 mg daily. 9. Hypokalemia, present on admission. Resolved. - Potassium on admission 2.7. Normalized. - No EKG changes. Disposition: Discussion with family about possible SNF or home health. Discharge pending electrolyte correction and antibiotic treatment completion. Pain Evaluation: Adequate Pain Control GI Prophylaxis: Not indicated VTE Prophylaxis: Sub-Q Heparin (Unfractionated) VTE Mechanical Devices: Intermittant Pneumatic CD Resuscitation Status: CPR: Attempt Resuscitation Attending Statement The patient was seen and examined together with Dr. Blanc on 07/04/2016 and I agree with the history, exam and plan as outlined in the note above. . VALERIE BLANC DO Jul 04, 2016 06:57 Alan Pedro MD Jul 05, 2016 08:06
[2016-07-04] MEDS: Sodium-Potassium Phosphorus Packet PO SCH ×3 (09:04→19:58)
[2016-07-04] MEDS: Heparin 5,000 Unit/mL Inj SUBQ SCH ×2 (09:04→19:57)
[2016-07-04] MEDS ORDERED: Tolvaptan 15 mag Tablet PO ONE (13:10)
--- NOTE | 2016-07-04 13:12 | PCM.PNMED ---
Subjective Date of Service Jul 04, 2016 Subjective stable, no new issue. Na 125, c/o being thirsty, want to drink more water. Exam Vital Signs Vital Sign - Last Date Time Temp Pulse Resp B/P Pulse Ox O2 Delivery O2 Flow Rate FiO2 07/04/16 10:10 99 07/04/16 09:00 36.7 18 128/68 95 Room Air 06/30/16 14:38 2 Intake and Output 07/03/16 07/03/16 07/04/16 Cumulative From/Thru 15:00 23:00 07:00 06/30/16 08:03 - 07/04/16 06:40 Intake Total 902 ml 1252 ml 20 ml 49133 ml Output Total 580 ml Balance 902 ml 1252 ml 20 ml 9715 ml Intake Oral 250 ml 605 ml 2345 ml IV Total 52 ml 647 ml 20 ml 7350 ml Packed Cells 600 ml 600 ml Output Urine Total 580 ml # Voids 2 5 20 # Bowel Movements 5 Exam PHYSICAL EXAMINATION: General appearance: Awake, alert, oriented x3. HEENT: No pallor, no jaundice. No JVD. No lymphadenopathy. No thyroid enlargement. Dry mucous membranes. Heart: Regular rhythm. Normal S1, S2. No murmurs, rubs, or gallops. Lungs: Wheezing bilaterally. Fine crackles at the bases. Abdomen: Soft, active bowel sounds. Nontender, nondistended, no hepatosplenomegaly. Extremity: No edema, cyanosis or clubbing of fingers. Lab and Diagnostics Result Diagram: 07/04/1631307/04/16313 Microbiology Blood Culture: 1 out of 2 bottles + Gram positive cocci? Staph Respiratory viral PCR positive for Influenza AH3. Sputum culture with Haemophilus parainfluenza and Aspergillus fumigatus MRSA screen negative. Strep pneumoniae and legionella urine antigens negative. X-Rays, CTs and MRIs CT ANGIO CHEST PULMONARY EMBOLISM IMPRESSION: 1. Scattered nodular groundglass like opacities as above. Their overall nonspecific and no priors are available for comparison. Findings are suspicious for infection or inflammation. Recommend interval imaging followup to document resolution and exclude presence of underlying mass lesion. 2. Mild appearance of esophageal thickening as described above. While this could be related to incomplete distention peristalsis, interval followup is recommended if concern for inflammation or mass lesion. 3. Cholelithiasis. 4. No pulmonary embolism. Dictated by: Kim Elizabeth M.D. on 06/30/2016 at 11:50 Approved by: Kim Elizabeth M.D. on 06/30/2016 at 11:50 CT BRAIN WITHOUT CONTRAST IMPRESSION: 1. No acute intracranial process. 2. Moderate atrophy and chronic microvascular ischemic changes. Dictated by: Kim Elizabeth M.D. on 06/30/2016 at 11:41 Approved by: Kim Elizabeth M.D. on 06/30/2016 at 11:41 X-RAY CHEST, TWO VIEWS IMPRESSION: No acute process. Dictated by: Afshin Trammell M.D. on 06/30/2016 at 8:45 Approved by: Afshin Trammell M.D. on 06/30/2016 at 8:45 Assessment & Plan ASSESSMENT: 1. 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 - continue fluid restriction and salt tab 2 gm TID. 2. Influenza infection and possible H. parainfluenza infection. 3. Acute anemia due to acute blood loss from frequent draws. 3. h/o HTN. 4. Dyslipidemia. Plan: d/c fluid restriction. add tolvaptan 15 mg PO x1. Na at 2000, BMP in am. GI Prophylaxis: Not indicated VTE Prophylaxis: Sub-Q Heparin (Unfractionated) VTE Mechanical Devices: Intermittant Pneumatic CD Resuscitation Status: CPR: Attempt Resuscitation Josie Larsen MD Jul 04, 2016 13:11
--- NOTE | 2016-07-04 17:21 | NUR ---
Social Work: IMM Patient signed IMM
[2016-07-04] MEDS: Alum-Mag Hydrox-Simeth 30 mL Suspension PO PRN (17:50)
--- NOTE | 2016-07-04 17:58 | NUR ---
UPSET STOMACH/FLUID RESTRICTION Fluid restriction lifted, patient notified, appears very pleased w/ this decision. Patient has reported upset stomach throughout the day, but resolved w/ eating most of the time. RN called to room at approximately 1745, patient reports diffuse abdominal discomfort, similar to severe gas. Maalox administered PO, will evaluate relief later this shift. Labs ordered to rule out underlying causes. Will continue to monitor for increased abdominal pain, vitals, and for fever.
[2016-07-05] VITALS (8 sets, daily range): BP systolic 140–171; BP diastolic 56–73; PULSE 85–104; RESP 12–23; O2SAT 94–97
--- NOTE | 2016-07-05 04:58 | NUR ---
Upset Stomach Patient continues to have stomach discomfort and loose stools overnight. Declined offer of maalox and zofran. States "I just want something minty." Multiple wet briefs. Continue to monitor.
[2016-07-05 06:00] LABS: Mean Corpuscular Volume 86.2 fL (81-100); Platelet Count 387 bil/L (150-400)
[2016-07-05 06:08] LABS: Magnesium 1.9 mg/dL (1.6-2.6); Phosphorus 2.7 mg/dL (2.5-4.9)
[2016-07-05 07:10] LABS: BASOPHILS % (AUTO) 0 % (0-3); EOSINOPHILS % (AUTO) 2 % (0-5); MONOCYTES % (AUTO) 15 % (4-12); NEUTROPHILS % (AUTO) 63 % (40-74)
[2016-07-05] MEDS ORDERED: Tolvaptan 15 mag Tablet PO ONE (09:00)
[2016-07-05] MEDS: Sodium-Potassium Phosphorus Packet PO SCH ×3 (09:54→20:20)
[2016-07-05] MEDS: Heparin 5,000 Unit/mL Inj SUBQ SCH ×2 (10:08→20:20)
--- NOTE | 2016-07-05 13:46 | PCM.PNMED ---
Subjective Date of Service Jul 05, 2016 Subjective Ashley Alvarez is an 86-year-old female with past medical history significant for hypertension and hyperlipidemia who presents with 1 week of flulike symptoms with decreased oral intake. Admitted for electrolyte disturbances and elevated troponin. Hospital day 6. Overnight: No acute events overnight. Patient had ongoing abdominal discomfort and loose stools. Today: The patient states that she feels better but still quite tired and is willing to work with physical therapy. She would like to go home with assistance from her family rather than a SNF. She denied any complaints this morning other than fatigue. Remaining review of systems negative. Exam Vital Signs Vital Sign - Last Date Time Temp Pulse Resp B/P Pulse Ox O2 Delivery O2 Flow Rate FiO2 07/05/16 12:29 36.9 90 22 149/60 96 Room Air 06/30/16 14:38 2 Intake and Output 07/04/16 07/04/16 07/05/16 Cumulative From/Thru 15:00 23:00 07:00 06/30/16 08:03 - 07/05/16 06:46 Intake Total 400 ml 700 ml 72313 ml Output Total 580 ml Balance 400 ml 700 ml 13675 ml Intake Oral 400 ml 640 ml 3385 ml IV Total 60 ml 7410 ml Packed Cells 600 ml Output Urine Total 580 ml # Voids 2 7 29 # Bowel Movements 2 4 11 Exam General: Alert, oriented, no acute distress. Well-developed, well-nourished, appropriately interactive HEENT: Normocephalic, atraumatic. External ears without defect. Pupils equal, round, and reactive to light and accommodation. Oral mucosa moist. Neck: Supple with full range of motion. No jugular venous distension. No bruits. No lymphadenopathy or thyromegaly. Cardiovascular: Regular rate and rhythm with no murmurs, rubs, or gallops appreciated Pulmonary: Faint wheezes bilaterally. Normal respiratory effort with no use of accessory muscles. Abdomen: Bowel tones present. Soft, mild tenderness to palpation diffusely, nondistended. No hepatosplenomegaly or masses appreciated. Extremities: Trace pretibial edema. No clubbing, cyanosis, or lymphadenopathy appreciated. Skin: Decreased skin turgor, normal temperature; no rash, ulcers, or subcutaneous nodules appreciated. Bruising on arms noted from IV sites. Neurological: Cranial nerves grossly intact. Normal muscle strength, tone, and bulk. Reflexes, coordination, and sensory function within normal limits. No known gait impairment. Psychiatric: Normal mood and affect. Alert and oriented to person, place, and time. IVs and Medications Medications Reviewed: Medications were reviewed in detail Lab and Diagnostics Result Diagram: 07/05/1644307/05/16443 Microbiology Blood Culture: 1 out of 2 bottles + Gram positive cocci? Staph Respiratory viral PCR positive for Influenza AH3. Sputum culture with Haemophilus parainfluenza and Aspergillus fumigatus MRSA screen negative. Strep pneumoniae and legionella urine antigens negative. X-Rays, CTs and MRIs CT ANGIO CHEST PULMONARY EMBOLISM IMPRESSION: 1. Scattered nodular groundglass like opacities as above. Their overall nonspecific and no priors are available for comparison. Findings are suspicious for infection or inflammation. Recommend interval imaging followup to document resolution and exclude presence of underlying mass lesion. 2. Mild appearance of esophageal thickening as described above. While this could be related to incomplete distention peristalsis, interval followup is recommended if concern for inflammation or mass lesion. 3. Cholelithiasis. 4. No pulmonary embolism. Dictated by: Kim Elizabeth M.D. on 06/30/2016 at 11:50 Approved by: Kim Elizabeth M.D. on 06/30/2016 at 11:50 CT BRAIN WITHOUT CONTRAST IMPRESSION: 1. No acute intracranial process. 2. Moderate atrophy and chronic microvascular ischemic changes. Dictated by: Kim Elizabeth M.D. on 06/30/2016 at 11:41 Approved by: Kim Elizabeth M.D. on 06/30/2016 at 11:41 X-RAY CHEST, TWO VIEWS IMPRESSION: No acute process. Dictated by: Afshin Trammell M.D. on 06/30/2016 at 8:45 Approved by: Afshin Trammell M.D. on 06/30/2016 at 8:45 Assessment & Plan Ashley Alvarez is an 86-year-old female with past medical history significant for hypertension and hyperlipidemia who presents with 1 week of flulike symptoms with decreased oral intake. Admitted for electrolyte disturbances and elevated troponin. Hospital day 6. 1. Euvolemic hyponatremia, present on admission, Improving - Complex course due to multifactorial etiology of hyponatremia: thiazide effect , hypovolemia initially and the current predominant mechanism, SIADH secondary to influenza A - On admission sodium 105. Urine osmolality was 328. Urine creatinine 28. Urine sodium 42. - Nephrology consulted. Appreciate time and expertise. - 3% normal saline stopped at 07/02/16 around 1999. - Strict fluid restriction of 800 ml. - Continue 2 gm salt tabs BID - Dr. Belle ordered another dose of tolvaptan as patient is now hypertensive and could stand a free water diuresis 2. Influenza A, present on admission, resolving. - Tamiflu started 07/01/16 to be completed 07/05/16 - Patient did not receive flu vaccine this year. - Patient with wheezing and productive cough ongoing for last 2-3 weeks. No history of lung disease. Former 30 pack year history quit 40+ years ago. - Microbiology as above. - Chest x-ray 06/30 showed no acute cardio pulmonary processes. - DuoNeb every 6 hours when necessary. 3. Possible H. parainfluenza, active. - Sputum cultures positive x2 - Amoxicillin 1 gram TID started 07/03/16. Complete 5 day course. - Supportive therapy. 4. Hypotension, not present on admission, resolved. - Patient with MAP in the 40s on 07/01 and responded appropriately to 1 L fluid bolus, but continued to have low MAP. - Midodrine discontinued. - We will continue to monitor closely. - Patient now becoming hypertensive, will reassess after tolvaptan is given, will likely restart home atenolol tomorrow. 5. Anemia, not present on admission, resolved. - Likely secondary to frequent blood draws and fluid resuscitation. - Hemoglobin and hematocrit 6.6 and 19.1 on 07/03/16. - 2 units PRBCs ordered transfused 07/03 with appropriate response. 6. Elevated troponin of unknown significance, present on admission, resolved. - Initial troponin 0.057. Patient completely asymptomatic. - EKG revealed no ischemic changes. - Heparin drip discontinued. - Serial troponin normalized. - Echo was grossly normal with no wall motion abnormalities. - Aspirin 81 mg daily for primary prevention. 7. Hypertension, present on admission, chronic. - Home medications held including: Atenolol 50 mg daily and Hydrochlorothiazide 25 mg daily - Will stop hydrochlorothiazide due to hyponatremia 8. Hyperlipidemia, present on admission, chronic. - Atorvastatin 20 mg daily. 9. Hypokalemia, present on admission. Resolved. - Potassium on admission 2.7. Normalized. - No EKG changes. 10. Diarrhea, not present on admission. Active. - Infectious versus side effect of Amoxicillin -Will order C. Diff PCR, although patient has been on isolation so it is unlikely -Probiotics will be added Disposition: Likely DC tomorrow. Patient would prefer to go home with home health and help from her family. GI Prophylaxis: Not indicated VTE Prophylaxis: Sub-Q Heparin (Unfractionated) VTE Mechanical Devices: Intermittant Pneumatic CD Resuscitation Status: CPR: Attempt Resuscitation Attending Statement The patient was seen and examined together with Dr. Kaufman on 07/05/2016 and I agree with the history, exam and plan as outlined in the note above. . Zoila Kaufman DO Jul 05, 2016 13:46 Aaln Pedro MD Jul 05, 2016 15:57
--- NOTE | 2016-07-05 14:46 | PCM.PNMED ---
Subjective Date of Service Jul 05, 2016 Subjective doing better, had PT in am. Na 131, tolvaptan 15 mg PO given x1 yesterday. Exam Vital Signs Vital Sign - Last Date Time Temp Pulse Resp B/P Pulse Ox O2 Delivery O2 Flow Rate FiO2 07/05/16 12:29 36.9 90 22 149/60 96 Room Air 06/30/16 14:38 2 Intake and Output 07/04/16 07/04/16 07/05/16 Cumulative From/Thru 15:00 23:00 07:00 06/30/16 08:03 - 07/05/16 06:46 Intake Total 400 ml 700 ml 33635 ml Output Total 580 ml Balance 400 ml 700 ml 18172 ml Intake Oral 400 ml 640 ml 3385 ml IV Total 60 ml 7410 ml Packed Cells 600 ml Output Urine Total 580 ml # Voids 2 7 29 # Bowel Movements 2 4 11 Exam General appearance: Awake, alert, oriented x3. HEENT: No pallor, no jaundice. No JVD. No lymphadenopathy. No thyroid enlargement. Dry mucous membranes. Heart: Regular rhythm. Normal S1, S2. No murmurs, rubs, or gallops. Lungs: improved air entry B/L, wheezing noted. Abdomen: Soft, active bowel sounds. Nontender, nondistended, no hepatosplenomegaly. Extremity: No edema, cyanosis or clubbing of fingers. Lab and Diagnostics Result Diagram: 07/05/164 07/05/164 Microbiology Blood Culture: 1 out of 2 bottles + Gram positive cocci? Staph Respiratory viral PCR positive for Influenza AH3. Sputum culture with Haemophilus parainfluenza and Aspergillus fumigatus MRSA screen negative. Strep pneumoniae and legionella urine antigens negative. X-Rays, CTs and MRIs CT ANGIO CHEST PULMONARY EMBOLISM IMPRESSION: 1. Scattered nodular groundglass like opacities as above. Their overall nonspecific and no priors are available for comparison. Findings are suspicious for infection or inflammation. Recommend interval imaging followup to document resolution and exclude presence of underlying mass lesion. 2. Mild appearance of esophageal thickening as described above. While this could be related to incomplete distention peristalsis, interval followup is recommended if concern for inflammation or mass lesion. 3. Cholelithiasis. 4. No pulmonary embolism. Dictated by: Kim Elizabeth M.D. on 06/30/2016 at 11:50 Approved by: Kim Elizabeth M.D. on 06/30/2016 at 11:50 CT BRAIN WITHOUT CONTRAST IMPRESSION: 1. No acute intracranial process. 2. Moderate atrophy and chronic microvascular ischemic changes. Dictated by: Kim Elizabeth M.D. on 06/30/2016 at 11:41 Approved by: Kim Elizabeth M.D. on 06/30/2016 at 11:41 X-RAY CHEST, TWO VIEWS IMPRESSION: No acute process. Dictated by: Afshin Trammell M.D. on 06/30/2016 at 8:45 Approved by: Afshin Trammell M.D. on 06/30/2016 at 8:45 Assessment & Plan Assessment & Plan ASSESSMENT: 1. 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 2. Influenza infection and possible H. parainfluenza infection. 3. Acute anemia due to acute blood loss from frequent draws. 3. h/o HTN. 4. Dyslipidemia. Plan: d/c fluid restriction. tolvaptan 15 mg one more dose today. repeat BMP in am. GI Prophylaxis: Not indicated VTE Prophylaxis: Sub-Q Heparin (Unfractionated) VTE Mechanical Devices: Intermittant Pneumatic CD Resuscitation Status: CPR: Attempt Resuscitation Josie Larsen MD Jul 05, 2016 14:46
--- NOTE | 2016-07-05 16:11 | NUR ---
Resp.. has denied any SOB and remains stable on room air. Was able to get out of bed with PT and tolerated activity well. Continues to have small loose stools and is incontinent of urine large amts. Family here and updated on status.
--- NOTE | 2016-07-05 16:45 | NUR ---
Social Work: Continued Discharge Planning [place] [employer] met with patient and patient's granddaughter at bedside nd provided them with a list of SNF. Patient states that she wants to review the facilities and make a decision when her children are present tomorrow. Patient requested that SW will follow up with patient's daughter Miriam, . SW will continue to follow. Rani Rodriguez LMSW, ACM
[2016-07-06 00:20] VITALS: PULSE 103
[2016-07-06 03:20] VITALS: BP 163/82; PULSE 101; RESP 16; O2SAT 96
[2016-07-06 03:37] LABS: Mean Corpuscular Hemoglobin 29.1 pg (27.0-35.0); Mean Corpuscular Volume 86.9 fL (81-100); Platelet Count 421 bil/L (150-400)
[2016-07-06 03:54] LABS: BASOPHILS % (AUTO) 1 % (0-3); EOSINOPHILS % (AUTO) 8 % (0-5); MONOCYTES % (AUTO) 11 % (4-12); NEUTROPHILS % (AUTO) 61 % (40-74)
--- NOTE | 2016-07-06 06:00 | NUR ---
GI/Respiratory Patient continues to have frequent loose stools. Specimen sent for C-diff PCR. Patient continues to maintain adequate SpO2 on room air; lungs clearing, with no audible wheezes. Still diminished in the bases. Continue to monitor.
[2016-07-06 09:28] VITALS: BP 165/65; PULSE 91; RESP 18; O2SAT 97
--- NOTE | 2016-07-06 09:51 | NUR ---
[facility] signed
[2016-07-06] MEDS: Sodium-Potassium Phosphorus Packet PO SCH ×3 (10:36→20:20)
[2016-07-06] MEDS: Heparin 5,000 Unit/mL Inj SUBQ SCH ×2 (10:36→20:21)
[2016-07-06 11:10] VITALS: PULSE 84
[2016-07-06 11:43] VITALS: BP 164/61; PULSE 82; RESP 16; O2SAT 98
--- NOTE | 2016-07-06 13:45 | PCM.PNMED ---
Subjective Date of Service Jul 06, 2016 Subjective Nephrology Progress Note: Attending Dr. Bee Ashley Alvarez is an 86-year-old female with past medical history significant for hypertension and hyperlipidemia who presented to [facility] ED with 1 week of flulike symptoms with decreased oral intake who is now being treated for profound hypernatremia, hypophosphatemia, and influenza. Hospital day #7. Overnight there were no acute events, however, the patient continued to have frequent loose stools and C. diff PCR was sent. Telemetry overnight: Sinus rhythm, 70s to low 100s, with first degree AV block and no ectopy. The patient is resting in bed comfortably and in no acute distress. She reports that overall she is feeling better. She continues to report minimal appetite. She reports productive cough of white sputum. She has no other complaints. She is voiding without difficulty in a brief due to inability to get out of bed quickly. She does endorse loose stool. She denies headache, throat pain, chest pain, shortness of breath, abdominal pain, nausea, vomiting, fever, chills, dysuria, or constipation. . Exam Vital Signs Vital Sign - Last Date Time Temp Pulse Resp B/P Pulse Ox O2 Delivery O2 Flow Rate FiO2 07/06/16 03:20 36.8 101 16 163/82 96 Room Air 06/30/16 14:38 2 Intake and Output 07/05/16 07/05/16 07/06/16 Cumulative From/Thru 15:00 23:00 07:00 06/30/16 08:03 - 07/06/16 06:06 Intake Total 1940 ml 650 ml 63043 ml Output Total 580 ml Balance 1940 ml 650 ml 74801 ml Intake Oral 1940 ml 600 ml 5925 ml IV Total 50 ml 7460 ml Packed Cells 600 ml Output Urine Total 580 ml # Voids 3 6 38 # Bowel Movements 3 2 16 Exam General: Elderly female lying in bed and in no acute distress, well-developed, well-nourished, appropriately interactive HEENT: Normocephalic, atraumatic. External ears without defect. Hard of hearing. Pupils equal, round, and reactive to light. Anicteric sclerae, moist conjunctivae, and no lid lag. Oropharynx free of erythema and cobble stoning with moist mucosa. Neck: Supple with full range of motion. No jugular venous distension. No bruits. No lymphadenopathy or thyromegaly. Cardiovascular: Regular rhythm and rate without murmurs, rubs, or gallops appreciated Pulmonary: Diffuse wheeze throughout all lung harden with fine crackles at bases bilaterally. Normal respiratory effort with no use of accessory muscles. Abdomen: Soft, obese, mild tenderness to palpation left lower quadrant, nondistended. No hepatosplenomegaly or masses appreciated. Extremities: No clubbing, cyanosis, or edema. Skin: Normal temperature, turgor, and texture; no rash, ulcers, or subcutaneous nodules appreciated. Neurological: Cranial nerves grossly intact. Psychiatric: Normal mood and affect. Alert and oriented to person, place, and time. . 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 Respiratory viral PCR positive for Influenza AH3. Sputum culture positive for Haemophilus parainfluenza and Aspergillus fumigatus. MRSA screen negative. Strep pneumoniae and legionella urine antigens negative. . X-Rays, CTs and MRIs CT ANGIO CHEST PULMONARY EMBOLISM IMPRESSION: 1. Scattered nodular groundglass like opacities as above. Their overall nonspecific and no priors are available for comparison. Findings are suspicious for infection or inflammation. Recommend interval imaging followup to document resolution and exclude presence of underlying mass lesion. 2. Mild appearance of esophageal thickening as described above. While this could be related to incomplete distention peristalsis, interval followup is recommended if concern for inflammation or mass lesion. 3. Cholelithiasis. 4. No pulmonary embolism. Dictated by: Kim Elizabeth M.D. on 06/30/2016 at 11:50 Approved by: Kim Elizabeth M.D. on 06/30/2016 at 11:50 CT BRAIN WITHOUT CONTRAST IMPRESSION: 1. No acute intracranial process. 2. Moderate atrophy and chronic microvascular ischemic changes. Dictated by: Kim Elizabeth M.D. on 06/30/2016 at 11:41 Approved by: Kim Elizabeth M.D. on 06/30/2016 at 11:41 X-RAY CHEST, TWO VIEWS IMPRESSION: No acute process. Dictated by: Afshin Trammell M.D. on 06/30/2016 at 8:45 Approved by: Afshin Trammell M.D. on 06/30/2016 at 8:45 . Cardiac Echo Impressions Echocardiogram Interpretation Summary: 1. Normal left ventricular size, wall thickness and systolic function with an estimated EF of 60-65% 2. Normal right ventricular size and systolic function. The estimated RVSP is 35 mm Hg 3. No evidence for significant valvular pathology. There is no old study for comparison Reading Physician:05:20 PM . Assessment & Plan Ashley Alvarez is an 86-year-old female with past medical history significant for hypertension and hyperlipidemia who presented to [facility] ED with 1 week of flulike symptoms with decreased oral intake who is now being treated for profound hypernatremia, hypophosphatemia, and influenza. Hospital day #7. Assessment and Plan: 1. Hyponatremia secondary to SIADH - Multifactorial and secondary to influenza, Haemophilus parainfluenza and aspergillus fumigatus pneumonia, and diuretic-induced hyponatremia. - Her current Na 132. - Discontinued fluid restriction and tolvaptan. - Will readjust fluids if needed accordingly and encouraged PO intake. 2. Influenza pneumonia, with superimposed bacterial and fungal infection of Haemophilus parainfluenza and aspergillus fumigatus. - ID has been consulted. 3. Acute anemia due to acute blood loss from frequent draws. 4. History of hypertension. . GI Prophylaxis: Not indicated VTE Prophylaxis: Sub-Q Heparin (Unfractionated) VTE Mechanical Devices: Intermittant Pneumatic CD Resuscitation Status: CPR: Attempt Resuscitation Attending Statement Nephrology attending: Patient was seen and examined along with the internal medicine resident. I have reviewed her note and agree with been written. Today her sodium is 132 with a potassium of 5.1. As this is back to her baseline we will sign off. Please notify us of any change in the patient's condition or if you have any questions. Zara Baldwin DO Jul 06, 2016 09:11 Landry Bee DO Jul 06, 2016 16:32
--- NOTE | 2016-07-06 15:11 | PCM.PNMED ---
Subjective Date of Service Jul 06, 2016 Subjective Ashley Alvarez is an 86-year-old female with past medical history significant for hypertension and hyperlipidemia who presents with 1 week of flulike symptoms with decreased oral intake. Admitted for electrolyte disturbances and elevated troponin. Hospital day 7. Overnight: No acute events overnight. Abdominal comfort and loose stools improving. Today: Patient endorses weakness and fatigue but has been working with physical therapy with good progress. She is decided that she would like to go to a jail facility upon discharge to help with her rehabilitation. Remaining review of systems negative. Exam Vital Signs Vital Sign - Last Date Time Temp Pulse Resp B/P Pulse Ox O2 Delivery O2 Flow Rate FiO2 07/06/16 03:20 36.8 101 16 163/82 96 Room Air 06/30/16 14:38 2 Intake and Output 07/05/16 07/05/16 07/06/16 Cumulative From/Thru 14:59 22:59 06:59 06/30/16 08:03 - 07/06/16 06:06 Intake Total 1940 ml 650 ml 35298 ml Output Total 580 ml Balance 1940 ml 650 ml 59022 ml Intake Oral 1940 ml 600 ml 5925 ml IV Total 50 ml 7460 ml Packed Cells 600 ml Output Urine Total 580 ml # Voids 3 6 38 # Bowel Movements 3 2 16 Exam General: Alert, oriented, no acute distress. Well-developed, well-nourished, appropriately interactive HEENT: Normocephalic, atraumatic. External ears without defect. Pupils equal, round, and reactive to light and accommodation. Oral mucosa moist. Neck: Supple with full range of motion. No jugular venous distension. No bruits. No lymphadenopathy or thyromegaly. Cardiovascular: Regular rate and rhythm with no murmurs, rubs, or gallops appreciated Pulmonary: Faint wheezes bilaterally. Normal respiratory effort with no use of accessory muscles. Abdomen: Bowel tones present. Soft, mild tenderness to palpation diffusely, nondistended. No hepatosplenomegaly or masses appreciated. Extremities: Trace pretibial edema. No clubbing, cyanosis, or lymphadenopathy appreciated. Skin: Decreased skin turgor, normal temperature; no rash, ulcers, or subcutaneous nodules appreciated. Bruising on arms noted from IV sites. Neurological: Cranial nerves grossly intact. Normal muscle strength, tone, and bulk. Reflexes, coordination, and sensory function within normal limits. No known gait impairment. Psychiatric: Normal mood and affect. Alert and oriented to person, place, and time. Lab and Diagnostics Procalcitonin 0.08 (07/05) Result Diagram: 07/06/166 07/06/16315 Microbiology Blood Culture: 1 out of 2 bottles + Gram positive cocci? Staph Respiratory viral PCR positive for Influenza AH3. Sputum culture with Haemophilus parainfluenza and Aspergillus fumigatus MRSA screen negative. Strep pneumoniae and legionella urine antigens negative. C. difficile PCR negative. X-Rays, CTs and MRIs CT ANGIO CHEST PULMONARY EMBOLISM IMPRESSION: 1. Scattered nodular groundglass like opacities as above. Their overall nonspecific and no priors are available for comparison. Findings are suspicious for infection or inflammation. Recommend interval imaging followup to document resolution and exclude presence of underlying mass lesion. 2. Mild appearance of esophageal thickening as described above. While this could be related to incomplete distention peristalsis, interval followup is recommended if concern for inflammation or mass lesion. 3. Cholelithiasis. 4. No pulmonary embolism. Dictated by: Kim Elizabeth M.D. on 06/30/2016 at 11:50 Approved by: Kim Elizabeth M.D. on 06/30/2016 at 11:50 CT BRAIN WITHOUT CONTRAST IMPRESSION: 1. No acute intracranial process. 2. Moderate atrophy and chronic microvascular ischemic changes. Dictated by: Kim Elizabeth M.D. on 06/30/2016 at 11:41 Approved by: Kim Elizabeth M.D. on 06/30/2016 at 11:41 X-RAY CHEST, TWO VIEWS IMPRESSION: No acute process. Dictated by: Afshin Trammell M.D. on 06/30/2016 at 8:45 Approved by: Afshin Trammell M.D. on 06/30/2016 at 8:45 Assessment & Plan Ashley Alvarez is an 86-year-old female with past medical history significant for hypertension and hyperlipidemia who presents with 1 week of flulike symptoms with decreased oral intake. Admitted for electrolyte disturbances and elevated troponin. Hospital day 7. 1. Euvolemic hyponatremia, present on admission, Improving - Complex course due to multifactorial etiology of hyponatremia: thiazide effect , hypovolemia initially and the current predominant mechanism, SIADH secondary to influenza A - On admission sodium 105. Urine osmolality was 328. Urine creatinine 28. Urine sodium 42. - 3% normal saline stopped at 07/02/16 around 1999. - 2 doses of tolvaptan given on 07/04-07/05. -1500 mL fluid restriction. - Continue 2 gm salt tabs BID - Nephrology following. Appreciate time and expertise. 2. Influenza A, present on admission, treatment completed. - Tamiflu started 07/01/16 completed 07/05/16 - Patient did not receive flu vaccine this year. - Chest x-ray 06/30 showed no acute cardio pulmonary processes. - DuoNeb every 6 hours when necessary. 3. Possible H. parainfluenza, present on admission, active. - Sputum cultures positive x2 - Amoxicillin 1 gram TID started 07/03/16. Complete 5 day course. - Supportive therapy. 4. Hypotension, not present on admission, resolved. - Patient with MAP in the 40s on 07/01 and responded appropriately to 1 L fluid bolus, but continued to have low MAP. - Midodrine discontinued. 5. Anemia, not present on admission, resolved. - Likely secondary to frequent blood draws and fluid resuscitation. - Hemoglobin and hematocrit 6.6 and 19.1 on 07/03/16. - 2 units PRBCs ordered transfused 07/03 with appropriate response. 6. Elevated troponin of unknown significance, present on admission, resolved. - Initial troponin 0.057. Patient completely asymptomatic. - EKG revealed no ischemic changes. - Heparin drip discontinued. - Serial troponin normalized. - Echo was grossly normal with no wall motion abnormalities. - Aspirin 81 mg daily for primary prevention. 7. Hypertension, present on admission, chronic. - Home medications held including: Atenolol 50 mg daily and Hydrochlorothiazide 25 mg daily - Will stop hydrochlorothiazide due to hyponatremia - Restarted Atenolol 25 mg daily. 8. Hyperlipidemia, present on admission, chronic. - Atorvastatin 20 mg daily. 9. Hypokalemia, present on admission. Resolved. - Potassium on admission 2.7. Normalized. - No EKG changes. 10. Diarrhea, not present on admission. Active. - Infectious versus side effect of Amoxicillin - C. Diff PCR negative. - Probiotics added. Disposition: Likely DC tomorrow. Patient would like to go to jail facility awaiting placement. Pain Evaluation: Adequate Pain Control GI Prophylaxis: Not indicated VTE Prophylaxis: Sub-Q Heparin (Unfractionated) VTE Mechanical Devices: Intermittant Pneumatic CD Resuscitation Status: CPR: Attempt Resuscitation Attending Statement The patient was seen and examined together with Dr. Blanc on 07-06-16 and I agree with the history, exam and plan as outlined in the note above. VALERIE BLANC DO Jul 06, 2016 06:49 Nadira Merino MD Jul 07, 2016 14:25
--- NOTE | 2016-07-06 17:11 | NUR ---
Social Work Note: Continued Discharge Planning Data& Assessment: SW met with pt and pt family at bedside to discuss discharge planning. Pt explained their preference is for [facility] in [place], but they are not able to accept new pt's at this time. Pt second preference is for [facility] in [place] but they do not contract with [facility]. Pt would like to be close to her family in [place] and close to the hospital and has a preference for [facility]. Referral sent to [facility]. SW to continue to follow. Pt will require prior authorization from [facility]. Pt denies any other needs at this time. SW to continue to follow. Plan:Anticipated discharge to [facility] pending acceptance and prior authorization. Pt denies any other needs at this time. SW to continue to follow. KEN Reyna
--- NOTE | 2016-07-06 18:33 | NUR ---
Ambulation/BM Patient alert and oriented x3 throughout shift, MISTRY, up with PT 1PA with FWW and took a few steps in the room and to the BSC -- stayed up in chair to visit with family, tolerated fair. BM x2 this shift, diarrhea -- patient negative for c.diff. Poor PO intake, only eating approx 15% of meals. No reports of n/v or abdominal pain. RA with SPO2 in high 90s.
[2016-07-06 20:28] VITALS: BP 158/77; PULSE 83; RESP 22; O2SAT 98
--- NOTE | 2016-07-06 23:53 | NUR ---
A&O No Telemetry A&O x3 , up to BSC w SBA, Telemetry orders DC'd 07/06/16, transferred off floor 2330 to OSC/ Report Given to Tamika Steward RN
[2016-07-07 00:27] VITALS: BP 156/69; PULSE 80; RESP 18; O2SAT 80; O2SAT 96
--- NOTE | 2016-07-07 05:15 | NUR ---
Transfer Pt transferred to OSC Rm 1004 at 2330. Pt came in CCU bed, alert and oriented x4. Pt is 96% O2 sats on RA, Droplet precautions in effect. Pt wearing brief for some incontinence, gets up to BSC with OPA and FWW. Pt refused SCDs overnight, despite education. No complaints of pain. Pt able to sleep throughout night.
[2016-07-07 05:39] VITALS: BP 168/70; PULSE 78; RESP 18; O2SAT 93
[2016-07-07 05:46] LABS: Mean Corpuscular Hemoglobin 28.3 pg (27.0-35.0); Mean Corpuscular Volume 88.4 fL (81-100)
[2016-07-07 08:16] VITALS: BP 166/80; PULSE 83; RESP 16; O2SAT 96
[2016-07-07] MEDS: Sodium-Potassium Phosphorus Packet PO SCH ×3 (08:19→21:19)
[2016-07-07] MEDS: Heparin 5,000 Unit/mL Inj SUBQ SCH ×2 (09:15→21:18)
--- NOTE | 2016-07-07 11:45 | NUR ---
NUTRITION FOLLOW-UP: Assess: 86 YO female admitted to CCU profound hyponatremia, influenza A, and possible bacterial infection. Nephrology managing fluids. Pt had decreased PO intake prior to admit but now her appetite is much improved. She is tolerating 75-100% of most meals. Wt is back to admit wt. PMHx: HTN, HLD. LABS: Reviewed. Cl 95, Glu 105, Alb 3.1 MEDICATIONS: Reviewed. Tamiflu. DIET: Heart Healthy/Consistent Carb. PO 75-100% DIET Hx/INTAKE SENIOR STRATEGY ANALYST: Decreased GI symptoms/stool: BM x 2 (07/07) Skin integrity: No issues noted ANTHROPOMETRICS: Current Wt: 75.8 kg BMI: 34.9 kg/m2 Admit Wt: 76.5 kg IBW: 43.6 kg Recent wt changes: None noted ESTIMATED NEEDS: Calories: 2747-6215 kcal/d (20-25 kcal/kg/d) Protein: 50-60 g/kg/d (1.2-1.5 g/kg/d IBW) Fluids: ~1550 ml/g NUTRITION DIAGNOSIS: 1) Inadequate oral intake related to acute illness as evidenced by reported decreased appetite/intake - IMPROVED. INTERVENTION: 1) Will continue Gelatein Plus and yogurt TID. 2) Discussed importance of adequate protein/calorie intake 07/01 MONITOR/EVALUATE: PO intake, Wt, Nutrition status, POC. Will follow per low nutrition risk guidelines.
[2016-07-07 14:09] VITALS: BP 125/72; PULSE 70; RESP 16; O2SAT 97
--- NOTE | 2016-07-07 15:11 | NUR ---
Social Work Continued Discharge Planning: SW met with patient at bedside to discuss discharge plan. Therapy recommending rehab. Referral sent to [facility]. SW spoke to [facility] rep May who states that no bed available until the end of the week. SW met with patient at bedside to obtain alterative SNF choices. List provided. Patient states choice as any in network provider with [facility]. Choice list provided to patient at bedside. SW sent referral to [facility] and [facility]. SW to follow for possible clinical acceptance and bed availability. PLAN: SNF, pending accepting facility. No beds at [facility] until the end of the weeks. SW following for placement at [facility] and [facility]. Magdalena ROGERS Addendum: 07/08/16 at 0821 by SOWMYA KELLEY Late entry: Patient accepted to [facility] and [facility]. Auth to be initiated for transfer to rehab. Magdalena ROGERS
--- NOTE | 2016-07-07 19:44 | NUR ---
ACTIVITY Patient denies pain. Tolerating liquids PO and her diet well. Denies nausea. No emesis noted. Denies SOB. Patient has been able to ambulate in the room. Tolerated activity well. Voiding without any problems.
[2016-07-07 20:40] VITALS: BP 122/82; PULSE 80; RESP 20; O2SAT 93
[2016-07-07] MEDS: Fluticasone 0.05% 15 Spray/2 Gm 16 Gm Nasal Spray NASAL SCH (21:24)
--- NOTE | 2016-07-07 22:33 | PCM.PNMED ---
Subjective Date of Service Jul 07, 2016 Subjective Patient is beginning to feel better. She has no new complaints. Exam Vital Signs Vital Sign - Last Date Time Temp Pulse Resp B/P Pulse Ox O2 Delivery O2 Flow Rate FiO2 07/07/16 20:40 36.8 80 20 122/82 93 Room Air Intake and Output 07/06/16 07/06/16 07/07/16 Cumulative From/Thru 15:00 23:00 07:00 06/30/16 08:03 - 07/07/16 05:37 Intake Total 2000 ml 750 ml 73358 ml Output Total 750 ml 1050 ml 2380 ml Balance 1250 ml -300 ml 81695 ml Intake Oral 2000 ml 750 ml 8675 ml IV Total 7460 ml Packed Cells 600 ml Output Urine Total 550 ml 1130 ml Urine/Stool Mix 750 ml 500 ml 1250 ml # Voids 4 42 # Bowel Movements 2 2 20 Exam General: Patient is in no apparent distress. HEENT: Head is atraumatic normocephalic. Eyes: Pupils are equally round and reactive to light and accommodation. Extraocular muscles are intact. Sclera are white anicteric. Subconjunctival mucosa is pink. Ears and nose are unremarkable. Oropharynx: There is no mucosal lesions, there is no thrush, there is no pharyngitis. Neck: Is supple, there are no nodes or masses or tenderness. Chest: Is clear to auscultation and percussion. There are no rales, rhonchi, wheezes or rubs. Heart: Rate. Rhythm is regular. There is no murmur, rub or gallop. Abdomen: Good bowel sounds are present. Abdomen is soft, nontender, no organomegaly or masses were appreciated. Extremities: Are symmetrical and well perfused. There is no edema, there is no cellulitis, no rash. Neurologic: There are no focal neurological deficits. Cranial nerves II through XII are intact. There are no sensory or motor deficits. Psychiatric: Patients mood is calm and shows no sign of agitation. Genital: Deferred Rectal: Deferred Lab and Diagnostics Result Diagram: 07/07/16 0450 07/07/16 0450 Microbiology Blood Culture: 1 out of 2 bottles + Gram positive cocci? Staph Respiratory viral PCR positive for Influenza AH3. Sputum culture with Haemophilus parainfluenza and Aspergillus fumigatus MRSA screen negative. Strep pneumoniae and legionella urine antigens negative. C. difficile PCR negative. Name: ASHLEY EDGAR Age/Sex: 86/F Attend Dr: Alan Pedro MD Acct: [id number] Unit: [id number] Status: ADM IN Location: [facility] [id number] Re06/30/16 Disch: Specimen: [id number] Collected: 06/30/16 Status: COMP Req#: [id number] Received: 07/01/16 Source: SPUTUM EXP Sp Desc : Subm Dr: VALERIE BLANC DO Ordered: GRAM SPT REFLEX, SPUTUM CULTURE Comments: Collected by Nurse/Unit? Y/N Y Procedure Result Verified Site Microbiology SARI CULT SPUTUM GS Final 07/01/16 SPT GRAM STAIN MODERATE POLYS FEW EPITHELIAL CELLS MODERATE MIXED NORMAL KHAI This Spec is of good Quality and acceptable for Cult RESPIRATORY CULTURE Final 07/03/16 Organism 1 HAEMOPHILUS PARAINFLUENZAE COLONY COUNT/QUANTITY MODERATE GROWTH BETA LACTAM (CEFINASE) SENSITIVE Organism 2 ASPERGILLUS FUMIGATUS COLONY COUNT/QUANTITY SCANT GROWTH Organism 3 WITH NORMAL KHAI COLONY COUNT/QUANTITY MODERATE GROWTH Name: ASHLEY EDGAR Age/Sex: 86/F Attend Dr: Alan Pedro MD Acct: [id number] Unit: [id number] Status: ADM IN Location: [facility] [place] 1004-1 Re06/30/16 Disch: Specimen: [id number] Collected: 07/01/16 Status: COMP Req#: [id number] Received: 07/01/16 Source: BLOOD Sp Desc : AA Subm Dr: GUANACOVALERIE: RUFINO Comments: Collected by Nurse/Unit? Y/N N Procedure Result Verified Site Microbiology SARI CULTURE BLOOD Final 07/07/16-618 Organism 1 COAG NEGATIVE STAPHYLOCOCCUS GRAM STAIN RESULT GRAM POSITIVE COCCI ?STAPPhil BC BOTTLE Isolated from Anaerobic Bottle of Set Drawn DATE CALLED: 07/02/16 TIME CALLED: 1104 CALLED BY: VS FLOOR/DOCTOR: ALAN/MANN JOY READ BACK Y TYPE OF DRAW PERIPHERAL DRAW TIME OF POSITIVITY 1055 COAG NEGATIVE STAPHYLOCOCCUS SPECIES CAPITIS ISOLATED FROM ONE OF FOUR BOTTLES COLLECTED 07/01 Possible contaminant, clinical correlation required INFLUENZA A PCR Final 07/01/16-710 Organism 1 INFLUENZA A H3 INFLUENZA A PCR DETECTED TIME CALLED: 709 DATE CALLED: 07/01/16 FLOOR/DOCTOR: ALAN/IRISH Robles CALLED BY: JOSE The performance of the film array RVP has not been established in individuals who have received the influenza vaccine. Recent administration of a nasal influenza vaccine may cause false positive results for Influenza A and/or Influenza B. X-Rays, CTs and MRIs PROCEDURE: CT ANGIO CHEST PULMONARY EMBOLISM ([id number]) INDICATIONS: dyspnea, TECHNIQUE: After the administration of intravenous contrast, 2 mm thick sections acquired from the pulmonary apices to the posterior costophrenic angles. 3-dimensional maximum intensity projection (MIP) coronal and sagittal reformats were then acquired through the thorax. For radiation dose reduction, the following was used: automated exposure control, adjustment of mA and/or kV according to patient size. COMPARISON: None. FINDINGS: Image quality: Excellent. Pulmonary arteries: Pulmonary arteries are normal in size, and demonstrate no intraluminal filling defects to suggest central pulmonary embolism. Lungs and pleura: There are scattered nodular and groundglass like opacities bilaterally. The largest measures 13 mm. No pleural effusions or pneumothorax. Central and peripheral airways are patent. Mediastinum: Heart size is normal, without pericardial effusion. No mediastinal or hilar adenopathy. Thoracic aorta is normal in caliber and enhancement. Esophagus demonstrates mild appearance of diffuse thickening, slightly more prominent in the midportion. Small hiatal hernia is present. Bones and chest wall: No suspicious bony lesions. Ribs and thoracic spine appear intact throughout. Thyroid gland is unremarkable. No axillary or supraclavicular adenopathy. Abdomen: Gallbladder demonstrates luminal calcification without cortical thickening. Visualized upper abdominal solid organs appear normal in the early arterial phase of enhancement. IMPRESSION: 1. Scattered nodular groundglass like opacities as above. Their overall nonspecific and no priors are available for comparison. Findings are suspicious for infection or inflammation. Recommend interval imaging followup to document resolution and exclude presence of underlying mass lesion. 2. Mild appearance of esophageal thickening as described above. While this could be related to incomplete distention peristalsis, interval followup is recommended if concern for inflammation or mass lesion. 3. Cholelithiasis. 4. No pulmonary embolism. Dictated by: Kim Elizabeth M.D. on 06/30/2016 at 11:50 Approved by: Kim Elizabeth M.D. on 06/30/2016 at 11:50 CT BRAIN WITHOUT CONTRAST IMPRESSION: 1. No acute intracranial process. 2. Moderate atrophy and chronic microvascular ischemic changes. Dictated by: Kim Elizabeth M.D. on 06/30/2016 at 11:41 Approved by: Kim Elizabeth M.D. on 06/30/2016 at 11:41 X-RAY CHEST, TWO VIEWS IMPRESSION: No acute process. Dictated by: Afshin Trammell M.D. on 06/30/2016 at 8:45 Approved by: Afshin Trammell M.D. on 06/30/2016 at 8:45 Cardiac Echo Impressions Echocardiogram Interpretation Summary: 1. Normal left ventricular size, wall thickness and systolic function with an estimated EF of 60-65% 2. Normal right ventricular size and systolic function. The estimated RVSP is 35 mm Hg 3. No evidence for significant valvular pathology. There is no old study for comparison Reading Physician:05:20 PM . Assessment & Plan Ashley Edgar is an 86-year-old female with past medical history significant for hypertension and hyperlipidemia who presents with 1 week of flulike symptoms with decreased oral intake. Admitted for electrolyte disturbances and elevated troponin. Hospital day 7. 1. Euvolemic hyponatremia, present on admission, Improving - Complex course due to multifactorial etiology of hyponatremia: thiazide effect , hypovolemia initially and the current predominant mechanism, SIADH secondary to influenza A - On admission sodium 105. Urine osmolality was 328. Urine creatinine 28. Urine sodium 42. - 3% normal saline stopped at 07/02/16 around 1999. - 2 doses of tolvaptan given on 07/04-07/05. - Continue 1500 mL fluid restriction. - Continue 2 gm salt tabs BID - Nephrology following. Appreciate time and expertise. 2. Influenza A, present on admission, treatment completed. - Tamiflu started 07/01/16 completed 07/05/16 - Patient did not receive flu vaccine this year. - Chest x-ray 06/30 showed no acute cardio pulmonary processes. - DuoNeb every 6 hours when necessary. 3. Possible H. parainfluenza, present on admission, active. - Sputum cultures positive x2 - Amoxicillin 1 gram TID started 07/03/16. Complete 5 day course. - Supportive therapy. 4. Hypotension, not present on admission, resolved. - Patient with MAP in the 40s on 07/01 and responded appropriately to 1 L fluid bolus, but continued to have low MAP. - Midodrine discontinued. 5. Anemia, not present on admission, resolved. - Likely secondary to frequent blood draws and fluid resuscitation. - Hemoglobin and hematocrit 6.6 and 19.1 on 07/03/16. - 2 units PRBCs ordered transfused 07/03 with appropriate response. 6. Elevated troponin of unknown significance, present on admission, resolved. - Initial troponin 0.057. Patient completely asymptomatic. - EKG revealed no ischemic changes. - Heparin drip discontinued. - Serial troponin normalized. - Echo was grossly normal with no wall motion abnormalities. - Aspirin 81 mg daily for primary prevention. 7. Hypertension, present on admission, chronic. - Home medications held including: Atenolol 50 mg daily and Hydrochlorothiazide 25 mg daily - Will stop hydrochlorothiazide due to hyponatremia - Restarted Atenolol 25 mg daily. 8. Hyperlipidemia, present on admission, chronic. - Atorvastatin 20 mg daily. 9. Hypokalemia, present on admission. Resolved. - Potassium on admission 2.7. Normalized. - No EKG changes. 10. Diarrhea, not present on admission. Active. - Infectious versus side effect of Amoxicillin - C. Diff PCR negative. - Probiotics added. 11. Abnormal CT scan of the chest with the following findings: "1. There are scattered nodular and groundglass like opacities bilaterally. The largest measures 13 mm. No pleural effusions or pneumothorax. Central and peripheral airways are patent. Scattered nodular groundglass like opacities as above. Their overall nonspecific and no priors are available for comparison. Findings are suspicious for infection or inflammation. Recommend interval imaging followup to document resolution and exclude presence of underlying mass lesion. 2. Mild appearance of esophageal thickening as described above. While this could be related to incomplete distention peristalsis, interval followup is recommended if concern for inflammation or mass lesion. 3. Cholelithiasis." Disposition: Patient would like to go to care home facility and we are awaiting placement. She will need follow-up with Dr. Silva to determine significance of Aspergillus fumigatus. Pain Evaluation: Adequate Pain Control GI Prophylaxis: Not indicated VTE Prophylaxis: Sub-Q Heparin (Unfractionated) VTE Mechanical Devices: Intermittant Pneumatic CD Resuscitation Status: CPR: Attempt Resuscitation HallwoodDamien MD Jul 07, 2016 22:33
--- NOTE | 2016-07-08 04:07 | NUR ---
Cough Intermittent loose productive cough through night; droplet precautions. Pt able to ambulate safely to BR with FWW and SBA, observed sleeping most of night. Hourly rounding ongoing.
[2016-07-08 05:24] VITALS: BP 127/73; PULSE 77; RESP 21; O2SAT 96
[2016-07-08] MEDS: Fluticasone 0.05% 15 Spray/2 Gm 16 Gm Nasal Spray NASAL SCH (08:34)
[2016-07-08] MEDS: Heparin 5,000 Unit/mL Inj SUBQ SCH ×2 (08:36→20:18)
[2016-07-08] MEDS: Sodium-Potassium Phosphorus Packet PO SCH ×3 (08:36→20:17)
[2016-07-08 08:52] LABS: BASOPHILS % (AUTO) 0.2 % (0-3); EOSINOPHILS % (AUTO) 2.8 % (0-5); NEUTROPHILS % (AUTO) 75.1 % (40-74); Platelet Count 491 bil/L (150-400)
--- NOTE | 2016-07-08 12:49 | NUR ---
Called and left message for Jacqueline VÁZQUEZ at [facility] and let her know that patient could be ready for transfer to SNF today and I would like to have her review patient for authorization. Updated EQUIPMENT HIRE MANAGER
[2016-07-08 14:31] VITALS: BP 128/72; PULSE 73; RESP 20; O2SAT 98
--- NOTE | 2016-07-08 16:06 | PCM.DIMED ---
Discharge Instructions Date of Service Jul 08, 2016 Dates of Hospitalization Jun 30, 2016 at 13:21 Discharge Diagnosis Discharge Diagnosis Influenza A and H. parainfluenza infection and Aspergillus fumigatus found in Sputum with a nodular infiltrate seen on CT scan o9f the Chest. Diet Heart Healthy Activity No restrictions (May resume usual activities gradually as tolerated.) Call your provider Fever or Chills, Shortness of breath, Bleeding, Chest pain, Vomitting, Excessive diarrhea, Weakness (unilateral), Other Patient Instructions Follow-up Provider: WILL MCCAULEY Follow-up with PCP in: 1 week Provider: Landry Silva MD Follow-up in: 2 weeks (Follow up for abnormal CT scan and Aspergillus fumigatus in sputum) Damien Wolfe MD Jul 08, 2016 16:06
[2016-07-08] MEDS ORDERED: FLUT16SP NASAL (16:14)
[2016-07-08] MEDS ORDERED: Acetaminophen PO (16:14)
[2016-07-08] MEDS ORDERED: NAPH1POW2 PO (16:14)
[2016-07-08] MEDS ORDERED: MAGN400T23 PO (16:14)
[2016-07-08] MEDS ORDERED: SACC250C PO (16:14)
[2016-07-08] MEDS ORDERED: HEPA500017 SUBQ (16:14)
[2016-07-08] MEDS ORDERED: ASPI81TA3 PO (16:14)
--- NOTE | 2016-07-08 18:40 | NUR ---
Pt mood Pt in room on the phone with what appears to be her daughter. She is extremely upset that her transfer was declined to SNF. Pt hung up with daughter, allowed pt time to express her frustration. Reassured pt we would take good care of her here. Bed down and locked, call deysi kirklandin reach.
--- NOTE | 2016-07-08 19:19 | NUR ---
Social Work Continued Discharge Planning: JANA conducted discharge planning update. UR Specialist advised for auth initiation. JANA spoke to [facility] rep who was made aware of discharge for today. Bed available today. Rep to arrange transport for forklift picker at 5pm today. JANA faxed discharge paperwork to facility [phone]. Patient aware and in agreement. JANA received phone call from [facility], who states that patient not approved for transfer to rehab at this time and further electromedical equipment technician approval required. JANA advised rep of acceptance at [facility] and transport arrangements. Rep aware of discharge orders in place and extensive hospital bill for one more night if not discharged today. [facility] states that electromedical equipment technician approval required and follow up tomorrow needed for further clinical information review. JANA advised patient and daughter Faina,[phone] aware. SW to follow. PLAN: Accepted at [facility], pending [facility] Magdalena ROGERS
[2016-07-08 19:45] VITALS: BP 119/66; PULSE 82; RESP 19; O2SAT 94
--- NOTE | 2016-07-08 21:30 | PCM.PNMED ---
Subjective Date of Service Jul 08, 2016 Subjective Patient is feeling better and very much wants to go to [facility] snf facility. She has no new complaints. She still has a cough and is expectorating clear sputum. Exam Vital Signs Vital Sign - Last Date Time Temp Pulse Resp B/P Pulse Ox O2 Delivery O2 Flow Rate FiO2 07/08/16 19:45 36.5 82 19 119/66 94 Room Air Intake and Output 07/07/16 07/07/16 07/08/16 Cumulative From/Thru 15:00 23:00 07:00 06/30/16 08:03 - 07/08/16 06:01 Intake Total 450 ml 800 ml 04277 ml Output Total 800 ml 800 ml 3980 ml Balance -350 ml 0 ml 05211 ml Intake Oral 450 ml 800 ml 9925 ml IV Total 7460 ml Packed Cells 600 ml Output Urine Total 800 ml 800 ml 2730 ml Urine/Stool Mix 1250 ml # Voids 42 # Bowel Movements 1 21 Exam General: Patient is in no apparent distress. HEENT: Head is atraumatic normocephalic. Eyes: Pupils are equally round and reactive to light and accommodation. Extraocular muscles are intact. Sclera are white anicteric. Subconjunctival mucosa is pink. Ears and nose are unremarkable. Oropharynx: There is no mucosal lesions, there is no thrush, there is no pharyngitis. Neck: Is supple, there are no nodes, or masses or tenderness. Chest: Is clear to auscultation and percussion. There are no rales, rhonchi, wheezes or rubs. Heart: Rate. Rhythm is regular. There is no new murmur, rub or gallop. Abdomen: Good bowel sounds are present. Abdomen is soft, nontender, no organomegaly or masses were appreciated. Extremities: Are symmetrical and well perfused. There is no edema, there is no cellulitis, no rash. Neurologic: There are no focal neurological deficits. Cranial nerves II through XII are intact. There are no sensory or motor deficits. Psychiatric: Patients mood is calm and shows no sign of agitation. Genital: Deferred Rectal: Deferred Lab and Diagnostics Result Diagram: 07/08/16 0836 07/08/16 0836 Microbiology Blood Culture: 1 out of 2 bottles + Gram positive cocci? Staph Respiratory viral PCR positive for Influenza AH3. Sputum culture with Haemophilus parainfluenza and Aspergillus fumigatus MRSA screen negative. Strep pneumoniae and legionella urine antigens negative. C. difficile PCR negative. Name: ASHLEY EDGAR Age/Sex: 86/F Attend Dr: Alan Pedro MD Acct: [id number] Unit: [id number] Status: ADM IN Location: [facility] [id number] Re06/30/16 Disch: Specimen: [id number] Collected: 06/30/16 Status: COMP Req#: [id number] Received: 07/01/16 Source: SPUTUM EXP Sp Desc : Subm Dr: VALERIE BLANC DO Ordered: GRAM SPT REFLEX, SPUTUM CULTURE Comments: Collected by Nurse/Unit? Y/N Y Procedure Result Verified Site Microbiology SARI CULT SPUTUM GS Final 07/01/16 SPT GRAM STAIN MODERATE POLYS FEW EPITHELIAL CELLS MODERATE MIXED NORMAL KHAI This Spec is of good Quality and acceptable for Cult RESPIRATORY CULTURE Final 07/03/16 Organism 1 HAEMOPHILUS PARAINFLUENZAE COLONY COUNT/QUANTITY MODERATE GROWTH BETA LACTAM (CEFINASE) SENSITIVE Organism 2 ASPERGILLUS FUMIGATUS COLONY COUNT/QUANTITY SCANT GROWTH Organism 3 WITH NORMAL KHAI COLONY COUNT/QUANTITY MODERATE GROWTH Name: ASHLEY EDGAR Age/Sex: 86/F Attend Dr: Alan Pedro MD Acct: [id number] Unit: [id number] Status: ADM IN Location: [facility] 1004-1 Re06/30/16 Disch: Specimen: [id number] Collected: 07/01/16 Status: RUSSELL Sanders#: [id number] Received: 07/01/16 Source: BLOOD Sp Desc : AA [place] Dr: VALERIE BLANC DO Ordered: Comments: Collected by Nurse/Unit? Y/N N Procedure Result Verified Site Microbiology SARI CULTURE BLOOD Final 07/07/16-618 Organism 1 COAG NEGATIVE STAPHYLOCOCCUS GRAM STAIN RESULT GRAM POSITIVE COCCI ?STAPH BC BOTTLE Isolated from Anaerobic Bottle of Set Drawn DATE CALLED: 07/02/16 TIME CALLED: 1104 CALLED BY: LUKAS FLOOR/DOCTOR: ALAN/MANN JOY READ BACK Y TYPE OF DRAW PERIPHERAL DRAW TIME OF POSITIVITY 1055 COAG NEGATIVE STAPHYLOCOCCUS SPECIES CAPITIS ISOLATED FROM ONE OF FOUR BOTTLES COLLECTED 07/01 Possible contaminant, clinical correlation required INFLUENZA A PCR Final 07/01/16-710 Organism 1 INFLUENZA A H3 INFLUENZA A PCR DETECTED TIME CALLED: 709 DATE CALLED: 07/01/16 FLOOR/DOCTOR: CCU/IRISH Robles CALLED BY: JOSE The performance of the film array RVP has not been established in individuals who have received the influenza vaccine. Recent administration of a nasal influenza vaccine may cause false positive results for Influenza A and/or Influenza B. X-Rays, CTs and MRIs PROCEDURE: CT ANGIO CHEST PULMONARY EMBOLISM ([id number]) INDICATIONS: dyspnea, TECHNIQUE: After the administration of intravenous contrast, 2 mm thick sections acquired from the pulmonary apices to the posterior costophrenic angles. 3-dimensional maximum intensity projection (MIP) coronal and sagittal reformats were then acquired through the thorax. For radiation dose reduction, the following was used: automated exposure control, adjustment of mA and/or kV according to patient size. COMPARISON: None. FINDINGS: Image quality: Excellent. Pulmonary arteries: Pulmonary arteries are normal in size, and demonstrate no intraluminal filling defects to suggest central pulmonary embolism. Lungs and pleura: There are scattered nodular and groundglass like opacities bilaterally. The largest measures 13 mm. No pleural effusions or pneumothorax. Central and peripheral airways are patent. Mediastinum: Heart size is normal, without pericardial effusion. No mediastinal or hilar adenopathy. Thoracic aorta is normal in caliber and enhancement. Esophagus demonstrates mild appearance of diffuse thickening, slightly more prominent in the midportion. Small hiatal hernia is present. Bones and chest wall: No suspicious bony lesions. Ribs and thoracic spine appear intact throughout. Thyroid gland is unremarkable. No axillary or supraclavicular adenopathy. Abdomen: Gallbladder demonstrates luminal calcification without cortical thickening. Visualized upper abdominal solid organs appear normal in the early arterial phase of enhancement. IMPRESSION: 1. Scattered nodular groundglass like opacities as above. Their overall nonspecific and no priors are available for comparison. Findings are suspicious for infection or inflammation. Recommend interval imaging followup to document resolution and exclude presence of underlying mass lesion. 2. Mild appearance of esophageal thickening as described above. While this could be related to incomplete distention peristalsis, interval followup is recommended if concern for inflammation or mass lesion. 3. Cholelithiasis. 4. No pulmonary embolism. Dictated by: Kim Elizabeth M.D. on 06/30/2016 at 11:50 Approved by: Kim Elizabeth M.D. on 06/30/2016 at 11:50 CT BRAIN WITHOUT CONTRAST IMPRESSION: 1. No acute intracranial process. 2. Moderate atrophy and chronic microvascular ischemic changes. Dictated by: Kim Elizabeth M.D. on 06/30/2016 at 11:41 Approved by: Kim Elizabeth M.D. on 06/30/2016 at 11:41 X-RAY CHEST, TWO VIEWS IMPRESSION: No acute process. Dictated by: Afshin Trammell M.D. on 06/30/2016 at 8:45 Approved by: Afshin Trammell M.D. on 06/30/2016 at 8:45 Cardiac Echo Impressions Echocardiogram Interpretation Summary: 1. Normal left ventricular size, wall thickness and systolic function with an estimated EF of 60-65% 2. Normal right ventricular size and systolic function. The estimated RVSP is 35 mm Hg 3. No evidence for significant valvular pathology. There is no old study for comparison Reading Physician:05:20 PM . Assessment & Plan Ashley Edgar is an 86-year-old female with past medical history significant for hypertension and hyperlipidemia who presents with 1 week of flu-like symptoms with decreased oral intake. Admitted for electrolyte disturbances and elevated troponin. Hospital day 8.. 1. Euvolemic hyponatremia, present on admission, Improving - Complex course due to multifactorial etiology of hyponatremia: thiazide effect , hypovolemia initially and the current predominant mechanism, SIADH secondary to influenza A - On admission sodium 105. Urine osmolality was 328. Urine creatinine 28. Urine sodium 42. - 3% normal saline stopped at 07/02/16 around 1999. - 2 doses of tolvaptan given on 07/04-07/05. - Continue 1500 mL fluid restriction. - Continue 2 gm salt tabs BID - Nephrology following. Appreciate time and expertise. 2. Influenza A, present on admission, treatment completed. - Tamiflu started 07/01/16 completed 07/05/16 - Patient did not receive flu vaccine this year. - Chest x-ray 06/30 showed no acute cardio pulmonary processes. - CT scan of the chest showed: "1. There are scattered nodular and groundglass like opacities bilaterally. The largest measures 13 mm. No pleural effusions or pneumothorax. Central and peripheral airways are patent. Scattered nodular groundglass like opacities as above. Their overall nonspecific and no priors are available for comparison. Findings are suspicious for infection or inflammation. Recommend interval imaging followup to document resolution and exclude presence of underlying mass lesion - Continue DuoNeb every 6 hours when necessary. 3. Possible H. parainfluenza, present on admission, active. - Sputum cultures positive x2 - Amoxicillin 1 gram TID started 07/03/16. Completed 5 day course. - Supportive therapy. 4. Hypotension, not present on admission, resolved. - Patient with MAP in the 40s on 07/01 and responded appropriately to 1 L fluid bolus, but continued to have low MAP. - Midodrine discontinued. 5. Anemia, not present on admission, resolved. - Likely secondary to frequent blood draws and fluid resuscitation. - Hemoglobin and hematocrit 6.6 and 19.1 on 07/03/16. - 2 units PRBCs ordered transfused 07/03 with appropriate response. 6. Elevated troponin of unknown significance, present on admission, resolved. - Initial troponin 0.057. Patient completely asymptomatic. - EKG revealed no ischemic changes. - Heparin drip discontinued. - Serial troponin normalized. - Echo was grossly normal with no wall motion abnormalities. - Aspirin 81 mg daily for primary prevention. 7. Hypertension, present on admission, chronic. - Home medications held including: Atenolol 50 mg daily and Hydrochlorothiazide 25 mg daily - Will stop hydrochlorothiazide due to hyponatremia - Restarted Atenolol 25 mg daily. 8. Hyperlipidemia, present on admission, chronic. - Atorvastatin 20 mg daily. 9. Hypokalemia, present on admission. Resolved. - Potassium on admission 2.7. Normalized. - No EKG changes. 10. Diarrhea, not present on admission. Active. - Infectious versus side effect of Amoxicillin - C. Diff PCR negative. - Probiotics added. 11. Abnormal CT scan of the chest with the following findings: "1. There are scattered nodular and groundglass like opacities bilaterally. The largest measures 13 mm. No pleural effusions or pneumothorax. Central and peripheral airways are patent. Scattered nodular groundglass like opacities as above. Their overall nonspecific and no priors are available for comparison. Findings are suspicious for infection or inflammation. Recommend interval imaging followup to document resolution and exclude presence of underlying mass lesion. 2. Mild appearance of esophageal thickening as described above. While this could be related to incomplete distention peristalsis, interval followup is recommended if concern for inflammation or mass lesion. 3. Cholelithiasis." Disposition: Patient would like to go to snf facility and we are awaiting placement. She will need follow-up with Dr. Silva to determine significance of Aspergillus fumigatus. And abnormal CT scan of the chest findings Pain Evaluation: Adequate Pain Control GI Prophylaxis: Not indicated VTE Prophylaxis: Sub-Q Heparin (Unfractionated) VTE Mechanical Devices: Intermittant Pneumatic CD Resuscitation Status: CPR: Attempt Resuscitation BrunerDamien kirk MD Jul 08, 2016 21:30
--- NOTE | 2016-07-09 02:19 | NUR ---
Pt Mood This evening patient remains upset concerned regarding her denial of being accepted into a SNF. Allowed patient to express feelings, but patient still appears to be somewhat upset. Patient is currently sleeping, and appears comfortable. Patient is aware to call for nurse if she needs anything. Will continue to monitor, and continue Q1 hour checks.
[2016-07-09 05:14] VITALS: BP 149/76; PULSE 79; RESP 19; O2SAT 91
[2016-07-09 06:34] LABS: BASOPHILS % (AUTO) 0.4 % (0-3)
[2016-07-09 06:38] LABS: EOSINOPHILS % (AUTO) 3.5 % (0-5); MONOCYTES % (AUTO) 12.9 % (4-12); Mean Corpuscular Volume 88.9 fL (81-100); NEUTROPHILS % (AUTO) 69.8 % (40-74); Platelet Count 465 bil/L (150-400)
--- NOTE | 2016-07-09 08:18 | NUR ---
Called and left message for Jacqueline Lee CM at [facility] and let her know patient is ready for transfer to [facility]. We are needing to have authorization or denial today patient is medically ready. Updated ACCOUNT EXECUTIVE TRAINEE Addendum: 07/09/16 at 0900 by RADHA DECKER CM Jacqueline has sent this for review to her MD and they want packet faxed to [phone] Updated ACCOUNT EXECUTIVE TRAINEE
[2016-07-09 08:50] LABS: ERYTHROCYTE SEDIMENTATION RATE 40 mm/hr (0-40)
[2016-07-09] MEDS: Sodium-Potassium Phosphorus Packet PO SCH (10:34)
[2016-07-09] MEDS: Heparin 5,000 Unit/mL Inj SUBQ SCH (10:35)
[2016-07-09] MEDS: Fluticasone 0.05% 15 Spray/2 Gm 16 Gm Nasal Spray NASAL SCH (10:39)
--- NOTE | 2016-07-09 13:17 | NUR ---
[facility] has approved patient for transfer to [facility] today, called and asked Karley jones and asked for 1430 cotton picker operator. Updated DIRECTOR OF DISTANCE LEARNING Addendum: 07/09/16 at 1407 by RADHA DECKER CM [facility] can transport at 1500. Updated RN and DIRECTOR OF DISTANCE LEARNING
[2016-07-09 13:57] VITALS: BP 131/74; PULSE 67; RESP 18; O2SAT 99
--- NOTE | 2016-07-09 15:12 | NUR ---
Discharge Pt d/c'd to [facility] at approx 1500. Called report to DENIS Rea. Pt did not have IV access. Left w/ all belongings via w/c with private transport service.
--- NOTE | 2016-07-09 18:17 | PCM.DC.MED ---
Discharge Summary Date of Service Jul 09, 2016 Dates of Hospitalization Date of Hospital Admission Jun 30, 2016 at 13:21 Date of Discharge: Jul 09, 2016 Providers: Admitting Physician: Alan Pedro MD Primary Care Physician: Ross Mccauley Attending Physician: Alan Pedro MD Diagnosis at Time of Discharge Diagnosis at Time of Discharge Euvolemic hyponatremia Influenza A Haemophilus parainfluenza infection Hypotension secondary to vascular depletion Influenza A and H. 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 Hypertension Hyperlipidemia Elevated troponin, likely stress-induced with normal echo and no EKG changes Hypokalemia Diarrhea negative C. difficile Procedures XRay, CTs & MRIs PROCEDURE: CT ANGIO CHEST PULMONARY EMBOLISM ([id number]) INDICATIONS: dyspnea, TECHNIQUE: After the administration of intravenous contrast, 2 mm thick sections acquired from the pulmonary apices to the posterior costophrenic angles. 3-dimensional maximum intensity projection (MIP) coronal and sagittal reformats were then acquired through the thorax. For radiation dose reduction, the following was used: automated exposure control, adjustment of mA and/or kV according to patient size. COMPARISON: None. FINDINGS: Image quality: Excellent. Pulmonary arteries: Pulmonary arteries are normal in size, and demonstrate no intraluminal filling defects to suggest central pulmonary embolism. Lungs and pleura: There are scattered nodular and groundglass like opacities bilaterally. The largest measures 13 mm. No pleural effusions or pneumothorax. Central and peripheral airways are patent. Mediastinum: Heart size is normal, without pericardial effusion. No mediastinal or hilar adenopathy. Thoracic aorta is normal in caliber and enhancement. Esophagus demonstrates mild appearance of diffuse thickening, slightly more prominent in the midportion. Small hiatal hernia is present. Bones and chest wall: No suspicious bony lesions. Ribs and thoracic spine appear intact throughout. Thyroid gland is unremarkable. No axillary or supraclavicular adenopathy. Abdomen: Gallbladder demonstrates luminal calcification without cortical thickening. Visualized upper abdominal solid organs appear normal in the early arterial phase of enhancement. IMPRESSION: 1. Scattered nodular groundglass like opacities as above. Their overall nonspecific and no priors are available for comparison. Findings are suspicious for infection or inflammation. Recommend interval imaging followup to document resolution and exclude presence of underlying mass lesion. 2. Mild appearance of esophageal thickening as described above. While this could be related to incomplete distention peristalsis, interval followup is recommended if concern for inflammation or mass lesion. 3. Cholelithiasis. 4. No pulmonary embolism. Dictated by: Kim Elizabeth M.D. on 06/30/2016 at 11:50 Approved by: Kim Elizabeth M.D. on 06/30/2016 at 11:50 CT BRAIN WITHOUT CONTRAST IMPRESSION: 1. No acute intracranial process. 2. Moderate atrophy and chronic microvascular ischemic changes. Dictated by: Kim Elizabeth M.D. on 06/30/2016 at 11:41 Approved by: Kim Elizabeth M.D. on 06/30/2016 at 11:41 X-RAY CHEST, TWO VIEWS IMPRESSION: No acute process. Dictated by: Afshin Trammell M.D. on 06/30/2016 at 8:45 Approved by: Afshin Trammell M.D. on 06/30/2016 at 8:45 Cardiac Echo Impression Echocardiogram Interpretation Summary: 1. Normal left ventricular size, wall thickness and systolic function with an estimated EF of 60-65% 2. Normal right ventricular size and systolic function. The estimated RVSP is 35 mm Hg 3. No evidence for significant valvular pathology. There is no old study for comparison Reading Physician:05:20 PM . Brief History Christine Edgar is an 86-year-old female with past medical history significant for hypertension and hyperlipidemia who presents to the ED with 1 week of flulike symptoms with decreased oral intake. Patient states flulike symptoms including weakness, malaise, nausea, headache, dizzy, and productive cough. She notes that on Wednesday she went to see her primary care provider, Dr. Galvez, and was told she had the flu. She was prescribed an inhaler but never picked it up from the pharmacy. She notes that appetite has been poor and she has had 2-3 glasses of water at most per day. Over the last day or 2 she has had numerous falls due to feeling off balanced. No prior falls. She ambulates with the cane at baseline. She denies any fever, chills, diarrhea, abdominal pain, chest pain, shortness of breath, diaphoresis, or palpitations. She does note numerous sick contacts that have had colds but no influenza to her knowledge. She denies any history of heart or lung disease. She has never had an echocardiogram or any cardiac workup. She lives alone and completes ADLs with ease. She has good family and social support. On presentation to the ED patient's vitals were temperature 36.3, pulse 50, respiratory rate 18, blood pressure 159/74, pulse oximetry 97% on room air. Initial labs were significant for a sodium of 105, potassium 2.7, and troponin 0.057. Chest x-ray and CT of the head were unremarkable. Patient was started on normal saline and potassium replacement. Hospital Course Christine Edgar is an 86-year-old female with past medical history significant for hypertension and hyperlipidemia who presents with 1 week of flu-like symptoms with decreased oral intake. Admitted for electrolyte disturbances and elevated troponin. Hospital day 8.. 1. Euvolemic hyponatremia, present on admission, Improving - Complex course due to multifactorial etiology of hyponatremia: thiazide effect , hypovolemia initially and the current predominant mechanism, SIADH secondary to influenza A - On admission sodium 105. Urine osmolality was 328. Urine creatinine 28. Urine sodium 42. - 3% normal saline stopped at 07/02/16 around 1999. - 2 doses of tolvaptan given on 07/04-07/05. - Continue 1500 mL fluid restriction. - Continue 2 gm salt tabs BID - Nephrology followed during admission 2. Influenza A, present on admission, treatment completed. - Tamiflu started 07/01/16 completed 07/05/16 - Patient did not receive flu vaccine this year. - Chest x-ray 06/30 showed no acute cardio pulmonary processes. - CT scan of the chest showed: "1. There are scattered nodular and groundglass like opacities bilaterally. The largest measures 13 mm. No pleural effusions or pneumothorax. Central and peripheral airways are patent. Scattered nodular groundglass like opacities as above. Their overall nonspecific and no priors are available for comparison. Findings are suspicious for infection or inflammation. Recommend interval imaging followup to document resolution and exclude presence of underlying mass lesion - Continue DuoNeb every 6 hours when necessary. 3. Possible H. parainfluenza, present on admission, active. - Sputum cultures positive x2 - Amoxicillin 1 gram TID started 07/03/16. Completed 5 day course. - Supportive therapy. 4. Hypotension, not present on admission, resolved. - Patient with MAP in the 40s on 07/01 and responded appropriately to 1 L fluid bolus, but continued to have low MAP. - Midodrine discontinued. 5. Anemia, not present on admission, resolved. - Likely secondary to frequent blood draws and fluid resuscitation. - Hemoglobin and hematocrit 6.6 and 19.1 on 07/03/16. - 2 units PRBCs ordered transfused 07/03 with appropriate response. Stable H&H 6. Elevated troponin of unknown significance, present on admission, resolved. - Initial troponin 0.057. Patient completely asymptomatic. - EKG revealed no ischemic changes. - Heparin drip discontinued. - Serial troponin normalized. - Echo was grossly normal with no wall motion abnormalities. - Aspirin 81 mg daily for primary prevention. 7. Hypertension, present on admission, chronic. - Home medications held including: Atenolol 50 mg daily and Hydrochlorothiazide 25 mg daily - Will stop hydrochlorothiazide due to hyponatremia - Restarted Atenolol 25 mg daily. 8. Hyperlipidemia, present on admission, chronic. - Atorvastatin 20 mg daily. 9. Hypokalemia, present on admission. Resolved. - Potassium on admission 2.7. Normalized. - No EKG changes. 10. Diarrhea, not present on admission. Active. - Infectious versus side effect of Amoxicillin - C. Diff PCR negative. - Probiotics added. 11. Abnormal CT scan of the chest with the following findings: "1. There are scattered nodular and groundglass like opacities bilaterally. The largest measures 13 mm. No pleural effusions or pneumothorax. Central and peripheral airways are patent. Scattered nodular groundglass like opacities as above. Their overall nonspecific and no priors are available for comparison. Findings are suspicious for infection or inflammation. Recommend interval imaging followup to document resolution and exclude presence of underlying mass lesion. 2. Mild appearance of esophageal thickening as described above. While this could be related to incomplete distention peristalsis, interval followup is recommended if concern for inflammation or mass lesion. 3. Cholelithiasis." Disposition: Patient would like to go to senior care facility and we are awaiting placement. She will need follow-up with Dr. Silva to determine significance of Aspergillus fumigatus. And abnormal CT scan of the chest findings Exam Vital Signs (Last) Date Time Temp Pulse Resp B/P Pulse Ox O2 Delivery O2 Flow Rate FiO2 07/09/16 13:57 37.1 67 18 131/74 99 Room Air Exam General: Patient is in no apparent distress. HEENT: Head is atraumatic normocephalic. Eyes: Pupils are equally round and reactive to light and accommodation. Extraocular muscles are intact. Sclera are white anicteric. Subconjunctival mucosa is pink. Ears and nose are unremarkable. Oropharynx: There is no mucosal lesions, there is no thrush, there is no pharyngitis. Neck: Is supple, there are no nodes, or masses or tenderness. Chest: Is clear to auscultation and percussion. There are no rales, rhonchi, wheezes or rubs. Heart: Rate. Rhythm is regular. There is no new murmur, rub or gallop. Abdomen: Good bowel sounds are present. Abdomen is soft, nontender, no organomegaly or masses were appreciated. Extremities: Are symmetrical and well perfused. There is no edema, there is no cellulitis, no rash. Neurologic: There are no focal neurological deficits. Cranial nerves II through XII are intact. There are no sensory or motor deficits. Psychiatric: Patients mood is calm and shows no sign of agitation. Test 06/30/16 09:00 06/30/16 10:20 06/30/16 11:13 06/30/16 13:42 Pro-B-Type Natriuretic Peptide 3815pg/mL (0-738) Osmolality 227 (275-300) Lactic Acid Level 0.9mmol/L (0.4-2.0) Uric Acid 2.8mg/dL (2.6-7.2) Total Creatine Kinase 1263U/L (21-215) Creatine Kinase MB 28.9ng/mL (0.0-5.3) Creatine Kinase MB % 2.3% (0.0-5.0) Thyroid Stimulating Hormone (TSH) 2.340uIU/mL (0.450-4.500) Hold José Top Tube Received (Received) Urine Culture Reflexed Not indicated Urine Osmolality 328mOs/kH2O (250-1200) Urine Random Creatinine 28mg/dL (15-278) Test 06/30/16 20:37 07/01/16 04:55 07/01/16 15:45 07/02/16 08:58 Urine Legionella pneumophilia Ag Negative (Negative) Activated Partial Thromboplast Time 115.7sec (22.8-33.0) Troponin T 0.010ug/L (0.0-0.011) Urine Color Yellow (YELLOW) Urine Appearance Clear (CLEAR,HAZY) Urine pH 7.0 (5.0-8.0) Urine Specific [place] 1.010 (1.003-1.035) Urine Protein Tracemg/dL (NEG,TRACE) Urine Glucose (UA) Negativemg/dL (NEGATIVE) Urine Ketones Negativemg/dL (NEGATIVE) Urine Occult Blood Negative (NEGATIVE) Urine Nitrite Negative (NEGATIVE) Urine Bilirubin Negative (NEGATIVE) Urine Urobilinogen Normalmg/dL (NORMAL) Urine Leukocyte Esterase Negative (NEGATIVE) Urine RBC 0-2/hpf (0-2) Urine WBC 0-5/hpf (0-5) Urine Epithelial Cells Occasional/hpf (NONE-MOD) Urine Crystals None seen (NONE SEEN) Urine Bacteria None/hpf (NONE-FEW) Urine Hyaline Casts None/lpf (NONE) Urine Granular Casts None seen (NONE SEEN) Urine Waxy Casts None seen (NONE SEEN) Urine Red Blood Cell Casts None seen (NONE SEEN) Urine White Blood Cell Casts None seen (NONE SEEN) Urine Mucus Present (None Seen) Urine Trichomonas None seen (NONE SEEN) Urine Yeast None (NONE SEEN) Urinalysis Comment None Urine Random Sodium 36mEq/L Ionized Calcium (Calculated) 3.70mg/dL (3.5-5.2) Test 07/03/16 10:12 07/04/16 03:14 07/05/16 04:44 07/06/16 03:16 Aspergillus flavus Antibody Negative (Neg:<1:1) Aspergillus fumigatus Antibody Negative (Neg:<1:1) Aspergillus galactomannan Antigen 0.06Index (0.00-0.49) Aspergillus niger Antibody Negative (Neg:<1:1) Nucleated Red Blood Cells 1/100 WBC (0-24) Myelocytes % 5% (0-0) Phosphorus Level 2.7mg/dL (2.5-4.9) Procalcitonin 0.08ng/mL (See Comment) Band Neutrophils % 0% (1-5) Metamyelocytes % 2% (0-0) Test 07/09/16 05:55 White Blood Count 10.7th/mm3 (3.8-10.1) Red Blood Count 3.34mil/mm3 (3.90-5.20) Hemoglobin 9.7g/dL (12.0-15.6) Hematocrit 29.7% (35.0-46.0) Mean Corpuscular Volume 88.9fL (81-100) Mean Corpuscular Hemoglobin 29.0pg (27.0-35.0) Mean Corpuscular Hemoglobin Concent 32.7% (32.0-37.0) Red Cell Distribution Width 14.5% (12.3-15.4) Platelet Count 465bil/L (150-400) Neutrophils (%) (Auto) 69.8% (40-74) Lymphocytes (%) (Auto) 11.1% (14-46) Monocytes (%) (Auto) 12.9% (4-12) Eosinophils (%) (Auto) 3.5% (0-5) Basophils (%) (Auto) 0.4% (0-3) Erythrocyte Sedimentation Rate 40mm/hr (0-40) Sodium Level 133mEq/L (134-144) Potassium Level 4.8mEq/L (3.5-5.2) Chloride Level 94mEq/L (97-108) Carbon Dioxide Level 28mmol/L (18-29) Blood Urea Nitrogen 14mg/dL (8-27) Creatinine 0.70mg/dL (0.57-1.00) Estimat Glomerular Filtration Rate 114mL/min (>59) Glucose Level 104mg/dL (60-99) Calcium Level 8.5mg/dL (8.5-10.1) Magnesium Level 2.0mg/dL (1.6-2.6) Total Bilirubin 1.6mg/dL (0.0-1.2) Aspartate Amino Transf (AST/SGOT) 54U/L (0-50) Alanine Aminotransferase (ALT/SGPT) 52U/L (0-32) Alkaline Phosphatase 65U/L (25-165) C-Reactive Protein 3.4mg/dL (0.0-0.5) Total Protein 5.6g/dL (6.4-8.4) Albumin 3.4g/dL (3.4-5.0) Microbiology Results Blood Culture: 1 out of 2 bottles + Gram positive cocci? Staph Respiratory viral PCR positive for Influenza AH3. Sputum culture with Haemophilus parainfluenza and Aspergillus fumigatus MRSA screen negative. Strep pneumoniae and legionella urine antigens negative. C. difficile PCR negative. Name: CHRISTINE EDGAR Age/Sex: 86/F Attend Dr: Alan Pedro MD Acct: [id number] Unit: [id number] Status: ADM IN Location: [facility] [id number] Re06/30/16 Disch: Specimen: [id number] Collected: 06/30/16 Status: COMP Req#: [id number] Received: 07/01/16 Source: SPUTUM EXP Sp Desc : Subm Dr: VALERIE BLANC DO Ordered: GRAM SPT REFLEX, SPUTUM CULTURE Comments: Collected by Nurse/Unit? Y/N Y Procedure Result Verified Site Microbiology SARI CULT SPUTUM GS Final 07/01/16 SPT GRAM STAIN MODERATE POLYS FEW EPITHELIAL CELLS MODERATE MIXED NORMAL KHAI This Spec is of good Quality and acceptable for Cult RESPIRATORY CULTURE Final 07/03/16 Organism 1 HAEMOPHILUS PARAINFLUENZAE COLONY COUNT/QUANTITY MODERATE GROWTH BETA LACTAM (CEFINASE) SENSITIVE Organism 2 ASPERGILLUS FUMIGATUS COLONY COUNT/QUANTITY SCANT GROWTH Organism 3 WITH NORMAL KHAI COLONY COUNT/QUANTITY MODERATE GROWTH Name: CHRISTINE EDGAR Age/Sex: 86/F Attend Dr: Alan Pedro MD Acct: [id number] Unit: [id number] Status: [place] [facility] [id number]06/30/16 Disch: Specimen: [id number] Collected: 07/01/16 Status: RUSSELL Sanders#: [id number] Received: 07/01/16 Source: BLOOD Sp Desc : AA [place] Dr: VALERIE BLANC DO Ordered: Comments: Collected by Nurse/Unit? Y/N N Procedure Result Verified Site Microbiology SARI CULTURE BLOOD Final 07/07/16-618 Organism 1 COAG NEGATIVE STAPHYLOCOCCUS GRAM STAIN RESULT GRAM POSITIVE COCCI ?STAPH BC BOTTLE Isolated from Anaerobic Bottle of Set Drawn DATE CALLED: 07/02/16 TIME CALLED: 1104 CALLED BY: LUKAS FLOOR/DOCTOR: ALAN/MANN JOY READ BACK Y TYPE OF DRAW PERIPHERAL DRAW TIME OF POSITIVITY 1055 COAG NEGATIVE STAPHYLOCOCCUS SPECIES CAPITIS ISOLATED FROM ONE OF FOUR BOTTLES COLLECTED 07/01 Possible contaminant, clinical correlation required INFLUENZA A PCR Final 07/01/16-710 Organism 1 INFLUENZA A H3 INFLUENZA A PCR DETECTED TIME CALLED: 709 DATE CALLED: 07/01/16 FLOOR/DOCTOR: ALAN/IRISH Robles CALLED BY: JOSE The performance of the film array RVP has not been established in individuals who have received the influenza vaccine. Recent administration of a nasal influenza vaccine may cause false positive results for Influenza A and/or Influenza B. Discharge Medications Discharge Medications Aspirin Chew (Aspirin Chew) 81 Mg Chew 81 MG PO DAILY Prescribed by: SHUN GOODE MD Atenolol (Atenolol) 50 Mg Tablet 50 MG PO DAILY (Reported) Fluticasone Propionate (Fluticasone Propionate Nasal) 16 Gm [place].susp 2 SPRAY NASAL DAILY Prescribed by: SHUN GOODE MD Heparin Sodium,Porcine (Heparin Sodium) 5,000 Unit/1 Ml Vial 5,000 UNIT SUBQ Q12 Prescribed by: SHUN GOODE MD Magnesium Oxide (Mag-Oxide) 400 Mg Tablet 400 MG PO BID Prescribed by: SHUN GOODE MD Naph,Mb-Db/K pH,Mbdb (Phos-Nak Packet) 1 Each Powd.pack 2 EA PO TID Prescribed by: SHUN GOODE MD Omeprazole (Omeprazole) 20 Mg Capsule.dr 20 MG PO DAILY (Reported) Saccharomyces Boulardii (Florastor) 250 Mg Capsule 250 MG PO BID Prescribed by: SHUN GOODE MD Simvastatin (Simvastatin) 80 Mg Tablet 40 MG PO HS (Reported) As needed ([Acetaminophen]) 325 MG TABLET 325 MG PO Q6H PRN PRN For Pain Prescribed by: SHUN GOODE MD Albuterol Sulfate (Ventolin HFA Inhaler) 200 Puff/18 Gm Inhaler 1 PUFF INH Q4 PRN PRN For Wheezing (Reported) Followup Plan Discharge Diet: Heart Healthy Discharge Activity: No restrictions (May resume usual activities gradually as tolerated.) Follow-up Provider: ROSS MCCAULEY Follow-up with PCP in: 1 week Provider: Landry Silva MD Follow-up in: 2 weeks (Follow up for abnormal CT scan and Aspergillus fumigatus in sputum) Time spent 40 minutes spent with discharge, and patient evaluation and management. Greater Than 50% time was spent [id number] with counseling copies to: [facility] [place] DO Jul 09, 2016 18:17
== END 2016-07-09 15:00 | DRG 644 ==
LOC: SED 08:01 → PCC 13:21 → CCU 15:26 → PCC 07-03 08:43 → OSC 07-06 23:07
PROVIDERS: ADMIT Internal Medicine; ATTEND Internal Medicine
PROC: 30233N1 Transfusion of Nonautologous Red Blood Cells into Peripheral Vein, Percutaneous Approach (ICD-10-PCS; principal; 2016-07-03)
DX: E22.2 Syndrome of inappropriate secretion of antidiuretic hormone (principal); D62 Acute posthemorrhagic anemia; J10.89 Influenza due to other identified influenza virus with other manifestations; I10 Essential (primary) hypertension; E87.6 Hypokalemia; E78.5 Hyperlipidemia, unspecified; Z87.891 Personal history of nicotine dependence; J10.1 Influenza due to other identified influenza virus with other respiratory manifestations; B96.3 Hemophilus influenzae [H. influenzae] as the cause of diseases classified elsewhere; B97.89 Other viral agents as the cause of diseases classified elsewhere